=== PATIENT | female | born 1970 | race Caucasian/White ===

== ENCOUNTER 2025-01-23 10:20 | Outpatient (CLI) | payer BC, SELFPAY ==
--- NOTE | ~2025-01-23 | CT_ITS ---
CT Scan of the Chest without Contrast: Clinical Indication: Lung cancer screening, nicotine dependence Technique: Contiguous sections were acquired throughout the chest without intravenous contrast. Dose reduction technique was used on this scan by utilizing automated exposure control and iterative recon struction technique. The dose-length product (DLP) was 223.87 mGy-cm. Findings: There is no evidence of any significant mediastinal, hilar or axillary lymphadenopathy. The mediastin al soft tissues appear normal. There is no evidence of pleural or pericardial effusion. The lungs are clear. No pulmonary nodules or infiltrates are noted. Images through the upper abdomen reveal no abnormalities. Impression: Lung RADS 1: Negative. 12 month follow-up screening CT advised. Reviewed, dictated and finalized at location . Impression: Lung RADS 1: Negative. 12 month follow-up screening CT advised.
== END 2025-01-23 10:21 | disposition home or self-care (01) ==
PROVIDERS: PCP Nurse Practitioner; Visit Provider Physician Assistant
DX: Z12.2 Encounter for screening for malignant neoplasm of respiratory organs (principal); Z87.891 Personal history of nicotine dependence
CPT/HCPCS: 71271

== ENCOUNTER 2025-02-01 13:35 | Outpatient (CLI) | payer BC, SELFPAY ==
--- OUTSIDE RECORDS SUMMARY | 2025-02-01 13:38 | XMS_ITS | Clinical Summary ---
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 Name Role Phone Unavailable Primary Care Provider Unavailabl e Social History Tobacco Use Types Packs/Day Years Used Date Smoking Tobacco: Never Assessed Comments Unknown Sex and Gender Information Value Date Recorded Sex Assigned at Not on file Legal Sex Female 4:49 PM CDT Gender Identity Not on file Sexual Orientation Not on file Plan of Treatment Health Maintenance Due Date Last Done Comments Cervical Cancer Screening Pa p Smear (Age 30 to 64) Every 3 Years 1970 Colorectal Cancer Screening Colonoscopy (10 Years) 1970 Annual Physical 1973 Hepatitis C 1988 DTaP, Tdap and Td Vaccines ( 1 - Tdap) 1989 Hepatitis B Vaccines (1 of 3 - 19+ 3-dose series) 1989 Cervical Cancer Screening Pa p with HPV Testing (Age 30 to 64) Every 5 Years 2000 Cervical Cancer Screening with HPV 2000 Mammogram Screening 2010 Pneumococcal Vaccine: 50+ Ye ars (1 of 1 - PCV) 2020 Zoster Vaccines (1 of 2) 2020 COVID-19 Vaccine (2023-2 5 season) 2024 Meningococcal B Vaccine Aged Out No l onger eligible based on patient's age to complete this topic Meningococcal Vaccine Aged Out No summer cindy eligible based on patient's age to complete this topic RSV Immunizations Under 20 Months Aged Out No longer eligible based on patient's age to complete this topic
--- OUTSIDE RECORDS SUMMARY | 2025-02-01 13:38 | XMS_ITS | Continuity of Care Document ---
Author Organization [facility] Address [address] [place] [address] Phone Care Team Providers Care Catalyst Operator Name Role Phone Nava BRUCE OD, Jewel Unavailable Unavailabl e Allergies, Adverse Reactions, Alerts Substance Reaction Status Criticality No Known Allergies Active No Inform ation Medications Medication Instructions Dosage Effective Dates (start - stop) Status Comments Soothe Hydration 1.25 % eye drops - Active Oracea 40 mg capsule, extended release take 1 capsule by oral route every day in the morning at least 1 hour before or 2 hours after meals 40 MG - Active Multi Vitamin BUCCAL CAPSULE - Active Vitamin D3 2,000 unit tablet - Active Procedures Procedure Date Office/outpatient Visit, [facility] Refraction Optomap Vision cs Frames Purchases Progressive Lens Per Lens Anti-reflective Coating Advance Directives Directive Yes / No Effective Date File Name No Information Encounters Encounter Description Practice Location Reason(s) For Visit Diagnoses Date Provider Providers Copied on Encounter Office/outpat ient Visit, [facility], [address], [place], [place], [id number], [place] tel:[phone] [facility] [place] blurry vision (chief complaint) Headache Nava Holloway. [address], [place], [id number], [place]. tel:[phone] Referring Provider: Jewel Vick OD P, [address] [place], [address] . tel:[phone] [facility], [address], [place], [place], [id number], [place] tel:[phone] [facility] No Information [facility] . [address], [address], [place], [place], [address], [place]. tel:[phone] Referring Provider: Jewel Vick OD P, [address] [place], [address] . tel:[phone] sulting Provider: Mellissa Barrera, [address] [facility], [place], [address]. Family History Family Member Type Diagnosis Age At Onset No Information Payers Payer name Insurance type Covered green party ID Authorgretchen arce(s) [facility] [id number] [employer] Plan [id number] Social History Type Description Quantity Date Captured Comments Alcohol Use Details Unknown Caffeine Use Details Unknown Tobacco Use Status Smoking Status Smoker, current stat us unknown Non-Smoking Tobacco Use Details : No Details Available : No Details Available Sex Female Chief Complaint And Reason For Visit From encounter dated '02/09/2014 10:30'. blurry vision (chief complaint). Description: The 43 year old female presents for evaluation of blurry vision. in the right eye and left eye. It occurs all the time. It affects near vision. The condition is unstable. Pt states that she notices vision decreasing at near vision, but distances seeems normal. Pt also states that she has been getting headaches but she thinks that they may be related to allergies. Reason For Referral Reason For Referral No Information History Of Present Illness Encounter Date Complaint History Of Prese nt Illness blurry vision The 43 year old female presents for evaluation of blurry vision. in the right eye and left eye. It occurs all the time. It affects near vision. The condition is unstable. Pt states that she notices vision decreasing at near vision, but distances seeems normal. Pt also states that she has been getting headaches but she thinks that they may be related to allergies. Functional Status Date Functional Assessmen t No Information Instructions Date Instruction Additional Infor yaa - pleasedto find goo d resultsddisc headaches may be from eye strainrx given for specs-rec PAL specs for best conveniencecont AT PRN OUpt to call if symptoms worsen or do not improve Related to Headache - Return in 1 year madelyn Vick O.D. for Complete Exam Related to Headache Assessments Type Assessment Date assessment Headache Patient Care Teams Name Effective Dates (start - stop) Status Members No Information
--- OUTSIDE RECORDS SUMMARY | 2025-02-01 13:39 | XMS_ITS | Encounter Summary ---
Author Organization [facility] Address [address] [place] [address] Phone Care Team Providers Care Cras Name Role Phone Saurabh Urbina MD Primary Care Provider Vaughn Saldana Primary Care Provider [phone] Leatha Marcos NP Primary Care Provider [phone] Encounter Details Date Type Department Care Team (Late st Contact Info) Description 10/16/2017 Orders Only 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 Historical Provider MD LAB CYTOLOGY ORDERABLES F inal Result documented in this encounter Visit Diagnoses Not on filedocumented in this encounter Care Teams Cras Relationship Specialty Start Date End Date Saurabh Urbina MD [address] [place] [address] PCP - General 10/20/18 01/21/19 Vaughn Saldana PA [address] [place] [address] PCP - General Family Medicine 01/22/19 07/26/24 Leatha Marcos NP [address] [place] [address] PCP - General Family Medicine 07/27/24 documented as of this encounter
--- OUTSIDE RECORDS SUMMARY | 2025-02-01 13:39 | XMS_ITS | Referral Summary ---
Author Organization [facility] at [facility] Medical Office Building Address [facility] [place] [address] Care Team Providers Care Energy Trading Analyst Name Role Phone Leatha Marcos NP Primary Care Provider [phone] Encounters Date Type Department Care Team Description 01/08/2025 Results Follow-Up [facility] Obstetrical Gynecology [address] [place] [phone] Saurabh Urbina MD Screening Mammogram Bilateral W Young 01/07/2025 4:17 PM CDT - 01/07/2025 11:59 PM CDT Hospital Encounter [facility] Medical Office [address] 1 [facility] [address] [address] Encounter for screening mammogram for malignant neoplasm of breast Discharge Disposition: Discharge to home or self care 01/06/2025 Results Follow-Up [facility] Obstetrical Gynecology [address] [place] [address] [place] [phone] Saurabh Urbina MD Pap and High Risk HPV and Genotyping (Cytology Component) 12/28/2024 6:22 PM CDT - 12/28/2024 11:59 PM CDT Hospital Encounter [facility] Lab [facility] [place] [address] Benign-appearing endometrial cells on cervical Pap smear Discharge Disposition: Discharge to home or self care 12/28/2024 4:00 PM CDT Office Visit [facility] Obstetrical Gynecology [address] [facility] [address] [place] [address] Saurabh Urbina MD Benign-appearing endometrial cells on cervical Pap smear (Primary Dx) 12/15/2024 2:[address] [facility] at [address] [address] Elevated hematocrit 12/15/2024 3:00 PM CDT Office Visit [facility] Hematology [address] [place] [address] [address] [place] [address] Nancy Arvizu MD Elevated hematocrit (Primary Dx) 12/09/2024 4:[address] [facility] at [address] [address] Elevated hematocrit 12/08/2024 3:30 PM CDT Clinical Support [facility] Medical [facility] Primary Care [facility]4 [facility] [address] [place] [address] Encounter for immunization (Primary Dx) 11/24/2024 4:[address] [facility] at [address] [address] Elevated hematocrit 11/10/2024 4:[address] [facility] at [address] [address] Elevated hematocrit 11/02/2024 Results Follow-Up [facility] Medical [facility] Obstetrical Gynecology [facility] [address] [place] [address] Saurabh Urbina MD Pap and High Risk HPV and Genotyping (Cytology Component) from Last 3 Months Allergies Active Allergy Reactions Criticality Noted Date Comments Sulfamethoxazole-Trimethoprim Nausea & Vomiting Low 07/15/2023 Medications cholecalciferol (VITAMIN D-3) 2000 unit capsule 2.5 capsules (5,000 Units total) Active fluticasone propionate (FLONASE) 50 mcg/actuation nasal spray 2 (two) times a day 10/31/19 16 Active multivitamin capsule Rx: Multivitamins Capsule Active montelukast (SINGULAIR) 10 mg tablet Take 1 tablet (10 mg total) by mouth nightly Active Soolantra 1 % cream 05/25/20 20 Active albuterol HFA (PROVENTIL HFA,VENTOLIN HFA,PROAIR HFA) 90 mcg/actuation inhaler 2 puff(s) Active cetirizine (ZyrTEC) 10 mg tablet 1 tab(s) Active EPINEPHrine 0.3 mg/0.3 mL auto-injection syringe Active Trelegy Ellipta 200-62.5-25 mcg inhaler 02/08/20 Active betamethasone dipropionate (DIPROSONE) 0.05 % lotion APPLY TOPICALLY TO AFFECTED AREA ON SCALP 1-2 TIMES DAILY 05/21/20 23 Active doxycycline hyclate 50 mg tablet 09/09/19 24 Active Active Problems Problem Noted Date Diagnosed Date Cigarette nicotine dependence without complicati on 08/04/2024 Assessment & Plan (08/04/2024 4:50 PM BLIND AIDE): Patient is current daily cigarette smoker. She is not interested in smoking cessation at this time. Follow up in 6 months. Moderate persistent asthma without complication 07/27/2024 Assessment & Plan (08/04/2024 4:45 PM BLIND AIDE): Chronic, controlled with Trelegy daily and albuterol inhaler PRN. Follow up in 6 months. Seasonal allergies 07/27/2024 Assessment & Plan (08/04/2024 4:46 PM BLIND AIDE): Chronic, controlled with Singular 10 mg nightly, Zyrtec 10 mg daily, and Flonase daily. Follow up in 6 months. Routine general medical exam ination at a health care facility 07/11/2023 Assessment & Plan (08/04/2024 4:48 PM BLIND AIDE): CBC, CMP, lipid panel ordered. Mammogram last completed: 12/2023 Pap last completed: 09/2023, patient following with [facility]. Colonoscopy last completed: 01/2024. Vaccinations: COVID, Shingrix, and Flu vaccines UTD. Repeat wellness exam in one year. Assessment & Plan (07/15/2023 3:51 PM BLIND AIDE): Healthcare maintenance updated, work on diet and weight, labs as ordered. We also discussed smoking sensation Anogenital (venereal) warts 11/30/2016 Resolved Problems Problem Noted Date Diagnosed Date Resolved Date Screen for colon cancer 11/11/202301/2025 Screening for colon cancer 09/26/2023 0 08/04/2024 Acute left ankle pain 01/22/20192024 Assessment & Plan (01/22/2019 4:17 PM CDT): Unclear specific diagnosis. Most likley appear tendon/ligament strain/sprain. Recommend to see Production Dispatcher if symptoms persist consider improvising shoe and standing. Immunizations Immunization Administration Dates Next Due Hib (PRP-OMP) 05/30/2021 Influenza, Quadrivalent, Daphne l Culture-based MDCK, Antibiotic Free, Intramuscular 05/24/2021 Influenza, Quadrivalent, Daphne l Culture-based MDCK, Preservative Free, Antibiotic Free, Intramuscular 05/12/2020 Influenza, Quadrivalent, Spl it, Intramuscular 07/09/2023 Influenza, Trivalent, IM (MDV) 07/10/2018 Influenza, Unspecified 05/29/2024(Deferr ed: Patient Refused),07/09/2023,07/15/2022(Deferre d: Patient decision),06/12/2022(Deferred: Patient Refused) Pneumococcal Polysaccharide PPV23 05/30/2021 ZOSTER Recombinant 12/08/2024,07/27/2024 Social History Tobacco Use Types Packs/Day Years Used Date Smoking Tobacco: Every Day Cigarettes 0.8 15.1 Smokeless Tobacco: Never Tobacco Cessation:Ready to Q uit: Yes; Counseling Given: Not Answered Alcohol Use Standard Drinks/Week Comments Yes 0 (1 standard drink = 0.6 oz pur e alcohol) rarely AUDIT-C Answer Date Recorded Q1: How often do you have a drink containing alcohol? Never 10/27/2024 Q2: How many drinks containi ng alcohol do you have on a typical day when you are drinking? Patient does not drink Q3: How often do you have si x or more drinks on one occasion? Never 10/27/2024 PHQ-2 Answer Date Recorded PHQ-2 Total Score (If total score is 3 or more points, staff should administer the PHQ-9) 0 07/27/2024 Personal Safety Answer Date Recorded Have you ever been in or are you currently in a harmful physical or emotional relationship or is someone making you feel afraid or unsafe? Denies 01/27/2024 Comments No Sex and Gender Information Value Date Recorded Sex Assigned at Not on file Legal Sex Female 4:34 PM CDT Gender Identity Female 05/29/2020 9:52 PM BLIND AIDE Sexual Orientation Straight 08/08/2021 2: 57 PM BLIND AIDE Last Filed Vital Signs Vital Sign Reading Time Taken Comments Blood Pressure 124/66 12/28/2024 3:57 PM CDT Pulse 82 12/15/2024 2:46 PM CDT Temperature 37.1 C (98.7 F) 12/15/2024 2:46 PM CDT Respiratory Rate 18 12/15/2024 2:46 PM CDT Oxygen Saturation 95% 12/15/2024 2:46 PM CDT Inhaled Oxygen Concentration - - Weight 107.1 kg (236 lb 3.2 oz) 12/28/2024 3:57 PM CDT Height 162.6 cm (5' 4) 12/28/2024 3:57 PM CDT Body Mass Index 40.54 12/28/2024 3:57 PM CDT Plan of Treatment Not on file Procedures Procedure Name Priority Date/Time Associated Diagnosis Comments SCREENING MAMMOGRAM BILATERAL W YOUNG Schedule Routine, Read Routine (OP Routine) 01/07/2025 4:29 PM CDT Encounter for screening mammogram for malignant neoplasm of breast PAP AND HIGH RISK HPV, REFLEX TO GENOTYPING Routine 12/28/2024 4:25 PM CDT Benign-appearing endometrial cells on cervical Pap smear HIGH RISK HPV DNA DETECTION WITH GENOTYPING Routine 12/28/2024 4:25 PM CDT Benign-appearing endometrial cells on cervical Pap smear DIFFERENTIAL AUTO Routine 12/15/2024 2:3 1 PM CDT Elevated hematocrit CBC WITH AUTO DIFFERENTIAL Routine 12/15/2024 2:31 PM CDT Elevated hematocrit DIFFERENTIAL AUTO Routine 12/09/2024 4:2 8 PM CDT Elevated hematocrit CBC WITH AUTO DIFFERENTIAL Routine 12/09/2024 4:28 PM CDT Elevated hematocrit DIFFERENTIAL AUTO Routine 11/24/2024 4:3 3 PM CDT Elevated hematocrit CBC WITH AUTO DIFFERENTIAL Routine 11/24/2024 4:33 PM CDT Elevated hematocrit DIFFERENTIAL AUTO Routine 11/10/2024 4:2 9 PM CDT Elevated hematocrit CBC WITH AUTO DIFFERENTIAL Routine 11/10/2024 4:29 PM CDT Elevated hematocrit COLONOSCOPY 01/27/2024 11:11 AM CDT from Last 3 Months or Most Recently Relevant to Health Maintenance Results * Screening Mammogram Bilateral W Young (01/07/2025 4:29 PM CDT) Anatomical Region Laterality Modality Breast Bilateral Mammography Impressions 01/07/2025 4:31 PM CDT Bilateral No evidence of malignancy in either breast. OVERALL BI-RADS FINAL ASSESSMENT: 1 - Negative RECOMMENDATION: Recommend bilateral annual screening mammography. Narrative 01/07/2025 4:31 PM CDT EXAMINATION: Screening Mammogram Bilateral W Young: 01/07/2025 COMPARISON: Relevant prior studies available at the time of interpretation were reviewed. TECHNIQUE: Mammography was performed with 2D and digital breast tomosynthesis (DBT) images. CAD was utilized. BREAST PARENCHYMAL COMPOSITION: There are scattered areas of fibroglandular density. FINDINGS: Bilateral There is no suspicious mass, calcification, or architectural distortion in either breast. Saurabh Urbina MD IMG MAMMO PROCEDURES Fi nal Result * High Risk HPV DNA Detection with Genotyping (Molecular component) (12/28/2024 4:25 PM CDT) Pathologist [facility] HPV HR 16 Not Detected Not Detected [facility] Comment:Testing performed by : [facility], [address] [place]., [address] HPV HR 18 Not Detected Not Detected DEX AZAR Comment:Testing performed by : [facility], [address] [place]., [address] HPV HR Non 16/18 Not Detected Not Detected DEX AZAR Comment: Interpretive Data Nucleic acid amplification for detection of high-risk Human Papilloma virus (HPV) is performed by the Ca Taryn 6800 HPV test. This assay specifically detects HPV-16 and HPV-18 genotypes. The following HPV genotypes are detected as high-risk HPV: HPV-31, 33, 35, ,39, 45, 51, 52, 56, 58, 59, 66, and 68. This assay has been approved by the [place] Food and Drug Administration for detection of HPV in cervical specimens collected by a physician using an endocervical brush/spatula or cervical broom and placed in the ThinPrep Pap Test PreservCyt collection containers. The performance characteristics of this test have been verified by the [facility] Molecular Infectious Disease laboratory. Correlate with separately reported cytology results, as applicable. Interpretive data last revised 23 Testing performed by: [facility], [address] [place]., [address] Endocervical 12/28/2024 4:25 PM CDT 12/30/2024 9:32 AM CDT Narrative DEX AZAR - 12/30/2024 8:24 PM CDT Clinical history and diagnosis->repeat Number of vials->1 Testing type->Screening Last menstrual period (date if known)->jl Menstrual status->Perimenopausal us Saurabh Urbina MD LAB BODY FLUIDS AND STO OLS ORDERABLES Final Result DEX AZAR [address] [facility] [place] [address] [facility] * Pap and High Risk HPV and Genotyping (Cytology Component) (12/28/2024 4:25 PM CDT) Thin prep (Pap test) 12/28/2024 4:25 PM CDT 12/29/2024 6:38 AM CDT Narrative PATHOLOGY [facility] - 01/06/2025 10:21 AM CDT EPIC results best viewed via link to PDF [facility] [place] [address] Note to Patients: This report may contain a detailed description of human tissue sent by a health care provider to the laboratory for pathologic evaluation. The content of this report is essential for diagnosis and may provide important critical findings. This information may be unfamiliar to patients to review without a medical professional present. It is advised that the patient review this report in the presence of a health care provider who can answer questions and explain the details. CYTOPATHOLOGY REPORT FINAL Patient Name: SANGEETA LAI Gender: F : 1970 (Age: 54) Address: [address] [place], [place] [id number] [facility] #: [id number] Service: UNKNOWN Location: Patient Type: [facility] SPECIMEN Taken: 12/28/2024 Received: 12/29/2024 Accessioned: 12/29/2024 Reported: 01/06/2025 Physician(s): Saurabh Urbina M.D. FINAL INTERPRETATION SOURCE OF SPECIMEN Liquid based Thin Prep pap with HPV: STATEMENT OF ADEQUACY - Satisfactory for evaluation - Endocervical cells/transformation zone sample present GENERAL CATEGORIZATION: - Negative for squamous intraepithelial lesion or malignancy Comments (Normal-Negative for High Risk HPV) HPV HR 16- Not Detected HPV HR 18-Not Detected HPV HR non 16/18- Not Detected Interpretive Data Nucleic acid amplification for detection of high-risk Human Papilloma virus (HPV) is performed by the Ca Taryn 6800 HPV test. This assay specifically detects HPV- 16 and HPV-18 genotypes. The following HPV genotypes are detected as high-risk HPV: HPV-31, 33, 35, 39, 45, 51, 52, 56, 58, 59, 66, and 68. This assay has been approved by the [place] Food and Drug Administration for detection of HPV in cervical specimens collected by a physician using an endocervical brush/spatula or cervical broom and placed in the ThinPrep Pap Test PreservCyt collection containers. The performance characteristics of this test have been verified by the [facility] Molecular Infectious Disease laboratory. Correlate with reported cytology results, as applicable. Interpretive data last revised 23 This specimen has been rescreened in accordance with this laboratory's Game Manager Program. /01/06/2025 10:21 Zeus Vidal, SCT(ASCP), [facility] Report Electronically Reviewed and Signed Out By Livier Hathaway MS, CT (ASCP) 01/06/2025 10:21:49 Cervicovaginal Cytology (Pap Test) Disclaimer: The Pap test is a screening test used to detect cervical cancer and its precursors; it is not a diagnostic procedure. False negative and false positive results do occur. Pap test results should be interpreted in the context of pertinent clinical information and biopsy results as indicated. [facility] Clinical Laboratory Improvement Amendments (CLIA) mandate that cytologic and histologic results be correlated for laboratory software quality analyst & improvement standards. FOR ALL HIGH-GRADE CASES we request submission of follow-up histological material and/or reports that have not been previously provided so that we may fulfill said required standards. Gross Description A. Liquid based Thin Prep pap with HPV: Cervical/vaginal - Screening ThinPrep Clinical Diagnosis and History Last Menstrual Period: Not Provided. Menstrual History: Jl-menopausal The patient is a 54 year old female with repeat. Report Images and scanned documents, if included only viewable in PDF version The performance characteristics of some immunohistochemical stains, in-situ hybridization and fluorescence in-situ hybridization tests and immunophenotyping by flow cytometry cited in this report (if any) were determined by the Surgical Pathology Department at [facility] as part of an ongoing quality rn program and in compliance with federally mandated regulations drawn from the Clinical Laboratory Improvement Act of 1988 (CLIA '88). Some of these tests rely on the use of analyte specific reagents and are subject to specific labeling requirements by the [place] Food and Drug Administration. Such diagnostic tests may only be performed in a facility that is certified by the Department of Health and Human Services as a high complexity laboratory under CLIA '88. The FDA has determined that such clearance or approval is not necessary. This test is used for clinical purposes. It should not be regarded as investigational or for research. Nevertheless, federal rules concerning the medical use of analyte specific reagents require that the following disclaimer be attached to the report: This test was developed and its performance characteristics determined by the Surgical Pathology Department of [facility]. It has not been cleared or approved by the U. S. Food and Drug Administration. Saurabh Urbina MD LAB CYTOLOGY ORDERABLES Final Result PATHOLOGY [facility] * Differential, auto (12/15/2024 2:31 PM CDT) Neutrophil abs 2.89 1.50 - 6.50 K/cumm Comment:Testing performed by : [address] [address] Imm gran abs 0.02 0.00 - 0.10 K/cumm DEX Comment:Testing performed by : [address] [address] Lymphocyte abs 2.75 0.80 - 3.30 K/cumm DEX Comment:Testing performed by : [address] [address] Monocyte abs 0.45 0.20 - 0.80 K/cumm [facility] Comment:Testing performed by : [address] [address] Eosinophil abs 0.20 0.00 - 0.50 K/cumm [facility] Comment:Testing performed by : [address] [address] Basophil abs 0.07 0.00 - 0.10 K/cumm [facility] Comment:Testing performed by : [address] [address] Neutrophil pct 45.3 % [facility] Comment: Interpretive Data Percent cell count reference ranges are not reported, since discordance with absolute values may lead to misinterpretation of CBC data. Current Interpretive Data was last revised on 2017. Testing performed by: [address] [address] Imm gran pct 0.3 % [facility] Comment: Interpretive Data Percent cell count reference ranges are not reported, since discordance with absolute values may lead to misinterpretation of CBC data. Current Interpretive Data was last revised on 2017. Testing performed by: [address] [address] Lymphocyte pct 43.1 % [facility] Comment: Interpretive Data Percent cell count reference ranges are not reported, since discordance with absolute values may lead to misinterpretation of CBC data. Current Interpretive Data was last revised on 2017. Testing performed by: [address] [address] Monocyte pct 7.1 % [facility] Comment: Interpretive Data Percent cell count reference ranges are not reported, since discordance with absolute values may lead to misinterpretation of CBC data. Current Interpretive Data was last revised on 2017. Testing performed by: [address] [address] Eosinophil pct 3.1 % [facility] Comment: Interpretive Data Percent cell count reference ranges are not reported, since discordance with absolute values may lead to misinterpretation of CBC data. Current Interpretive Data was last revised on 2017. Testing performed by: [address] [address] Basophil pct 1.1 % [facility] Comment: Interpretive Data Percent cell count reference ranges are not reported, since discordance with absolute values may lead to misinterpretation of CBC data. Current Interpretive Data was last revised on 2017. Testing performed by: [address] [address] Blood 12/15/2024 2:31 PM CDT 12/15/2024 2:36 PM CDT us Nancy Arvizu MD LAB BLOOD ORDERABLES Geeta walsh Result DEX AZAR [address] [facility] [place] [address] * (ABNORMAL) CBC with auto differential (12/15/2024 2:31 PM CDT) WBC 6.38 3.80 - 9.90 K/cumm Comment:Testing performed by : [address], [address] Hgb 14.3 11.9 - 15.5 g/dL DEX Comment:Testing performed by : [address], [address] Hct 43.5 35.6 - 45.5 % DEX Comment:Testing performed by : [address] [address] Plt 435(H) 150 - 400 K/cumm DEX Comment:Testing performed by : [address] [address] MPV 9.7 9.1 - 12.3 fL DEX Comment:Testing performed by : [address], [address] RBC 5.40(H) 3.90 - 5.20 M/cumm DEX Comment:Testing performed by : [address], [address] MCV 80.6(L) 81.3 - 96.4 fL DEX Comment:Testing performed by : [address], [address] MCH 26.5(L) 27.1 - 33.3 pg DEX Comment:Testing performed by : [address], [address] MCHC 32.9 32.3 - 35.7 g/dL DEX Comment:Testing performed by : [address], [address] RDW CV 13.3 11.1 - 14.9 % DEX Comment:Testing performed by : [address], [address] RDW SD 38.5 35.7 - 48.1 fL DEX Comment:Testing performed by : [address], [address] NRBC abs 0.00 0.00 - 0.01 K/cumm DEX Comment:Testing performed by : [address], [address] ANC Prelim 2.89 1.50 - 6.50 K/cumm DEX Comment: Interpretive Data The rapid ANC is a preliminary automated count and may vary from the final ANC (Neut Abs) reported in the WBC differential that follows. Current interpretive data was last revised 2024. Testing performed by: [address] [address] Blood 12/15/2024 2:31 PM CDT 12/15/2024 2:36 PM CDT us Nancy Arvizu MD LAB BLOOD ORDERABLES Geeta walsh Result DEX [address] [facility] [place] [address] * (ABNORMAL) Differential, auto (12/09/2024 4:28 PM CDT) Neutrophil abs 6.51(H) 1.50 - 6.50 K/cumm Comment:Testing performed by : [address] [address] Imm gran abs 0.04 0.00 - 0.10 K/cumm DEX Comment:Testing performed by : [address] [address] Lymphocyte abs 1.93 0.80 - 3.30 K/cumm DEX Comment:Testing performed by : [address] [address] Monocyte abs 0.67 0.20 - 0.80 K/cumm DEX Comment:Testing performed by : [address] [address] Eosinophil abs 0.24 0.00 - 0.50 K/cumm DEX Comment:Testing performed by : [address] [address] Basophil abs 0.05 0.00 - 0.10 K/cumm DEX Comment:Testing performed by : [address] [address] Neutrophil pct 69.1 % DEX Comment: Interpretive Data Percent cell count reference ranges are not reported, since discordance with absolute values may lead to misinterpretation of CBC data. Current Interpretive Data was last revised on 2017. Testing performed by: [address] [address] Imm gran pct 0.4 % [facility] Comment: Interpretive Data Percent cell count reference ranges are not reported, since discordance with absolute values may lead to misinterpretation of CBC data. Current Interpretive Data was last revised on 2017. Testing performed by: [address] [address] Lymphocyte pct 20.4 % [facility] Comment: Interpretive Data Percent cell count reference ranges are not reported, since discordance with absolute values may lead to misinterpretation of CBC data. Current Interpretive Data was last revised on 2017. Testing performed by: [address] [address] Monocyte pct 7.1 % [facility] Comment: Interpretive Data Percent cell count reference ranges are not reported, since discordance with absolute values may lead to misinterpretation of CBC data. Current Interpretive Data was last revised on 2017. Testing performed by: [address] [address] Eosinophil pct 2.5 % [facility] Comment: Interpretive Data Percent cell count reference ranges are not reported, since discordance with absolute values may lead to misinterpretation of CBC data. Current Interpretive Data was last revised on 2017. Testing performed by: [address] [address] Basophil pct 0.5 % [facility] Comment: Interpretive Data Percent cell count reference ranges are not reported, since discordance with absolute values may lead to misinterpretation of CBC data. Current Interpretive Data was last revised on 2017. Testing performed by: [address] [address] Blood 12/09/2024 4:28 PM CDT 12/09/2024 4:29 PM CDT Nancy Arvizu MD LAB BLOOD ORDERABLES Geeta l Result [facility] [address] [facility] [place] [address] * (ABNORMAL) CBC with auto differential (12/09/2024 4:28 PM CDT) [place] [facility] WBC 9.44 3.80 - 9.90 K/cumm Comment:Testing performed by : [address] [address] Hgb 13.9 11.9 - 15.5 g/dL DEX Comment:Testing performed by : [address] [address] Hct 42.3 35.6 - 45.5 % DEX Comment:Testing performed by : [address] [address] Plt 340 150 - 400 K/cumm DEX Comment:Testing performed by : [address] [address] MPV 9.8 9.1 - 12.3 fL DEX Comment:Testing performed by : [address] [address] RBC 5.20 3.90 - 5.20 M/cumm DEX Comment:Testing performed by : [address] [address] MCV 81.3 81.3 - 96.4 fL DEX Comment:Testing performed by : [address] [address] MCH 26.7(L) 27.1 - 33.3 pg DEX Comment:Testing performed by : [address] [address] MCHC 32.9 32.3 - 35.7 g/dL DEX Comment:Testing performed by : [address] [address] RDW CV 13.3 11.1 - 14.9 % DEX Comment:Testing performed by : [address] [address] RDW SD 39.2 35.7 - 48.1 fL DEX Comment:Testing performed by : [address] [address] NRBC abs 0.00 0.00 - 0.01 K/cumm DEX Comment:Testing performed by : [address] [address] ANC Prelim 6.51(H) 1.50 - 6.50 K/cumm DEX Comment: Interpretive Data The rapid ANC is a preliminary automated count and may vary from the final ANC (Neut Abs) reported in the WBC differential that follows. Current interpretive data was last revised 2024. Testing performed by: [address] [address] Blood 12/09/2024 4:28 PM CDT 12/09/2024 4:29 PM CDT us Nancy Arvizu MD LAB BLOOD ORDERABLES Geeta l Result [facility] [address] [facility] [place] [address] * (ABNORMAL) Differential, auto (11/24/2024 4:33 PM CDT) Pathologist [facility] Neutrophil abs 4.65 1.50 - 6.50 K/cumm Comment:Testing performed by : [address] [address] Imm gran abs 0.04 0.00 - 0.10 K/cumm DEX Comment:Testing performed by : [address] [address] Lymphocyte abs 3.14 0.80 - 3.30 K/cumm DEX Comment:Testing performed by : [address] [address] Monocyte abs 0.83(H) 0.20 - 0.80 K/cumm DEX Comment:Testing performed by : [address] [address] Eosinophil abs 0.31 0.00 - 0.50 K/cumm DEX Comment:Testing performed by : [address] [address] Basophil abs 0.09 0.00 - 0.10 K/cumm DEX Comment:Testing performed by : [address] [address] Neutrophil pct 51.3 % [facility] Comment: Interpretive Data Percent cell count reference ranges are not reported, since discordance with absolute values may lead to misinterpretation of CBC data. Current Interpretive Data was last revised on 2017. Testing performed by: [address] [address] Imm gran pct 0.4 % DEX Comment: Interpretive Data Percent cell count reference ranges are not reported, since discordance with absolute values may lead to misinterpretation of CBC data. Current Interpretive Data was last revised on 2017. Testing performed by: [address] [address] Lymphocyte pct 34.7 % [facility] Comment: Interpretive Data Percent cell count reference ranges are not reported, since discordance with absolute values may lead to misinterpretation of CBC data. Current Interpretive Data was last revised on 2017. Testing performed by: [address] [address] Monocyte pct 9.2 % [facility] Comment: Interpretive Data Percent cell count reference ranges are not reported, since discordance with absolute values may lead to misinterpretation of CBC data. Current Interpretive Data was last revised on 2017. Testing performed by: [address] [address] Eosinophil pct 3.4 % [facility] Comment: Interpretive Data Percent cell count reference ranges are not reported, since discordance with absolute values may lead to misinterpretation of CBC data. Current Interpretive Data was last revised on 2017. Testing performed by: [address] [address] Basophil pct 1.0 % [facility] Comment: Interpretive Data Percent cell count reference ranges are not reported, since discordance with absolute values may lead to misinterpretation of CBC data. Current Interpretive Data was last revised on 2017. Testing performed by: [address] [address] Blood 11/24/2024 4:33 PM CDT 11/24/2024 4:36 PM CDT us Nancy Arvizu MD LAB BLOOD ORDERABLES Geeta l Result [facility] [address] [facility] [place] [address] * (ABNORMAL) CBC with auto differential (11/24/2024 4:33 PM CDT) WBC 9.06 3.80 - 9.90 K/cumm Comment:Testing performed by : [address] [address] Hgb 14.2 11.9 - 15.5 g/dL DEX Comment:Testing performed by : [address] [address] Hct 43.3 35.6 - 45.5 % DEX Comment:Testing performed by : [address] [address] Plt 424(H) 150 - 400 K/cumm DEX Comment:Testing performed by : [address] [address] MPV 9.9 9.1 - 12.3 fL DEX Comment:Testing performed by : [address] [address] RBC 5.37(H) 3.90 - 5.20 M/cumm DEX Comment:Testing performed by : [address] [address] MCV 80.6(L) 81.3 - 96.4 fL DEX Comment:Testing performed by : [address] [address] MCH 26.4(L) 27.1 - 33.3 pg DEX Comment:Testing performed by : [address] [address] MCHC 32.8 32.3 - 35.7 g/dL DEX Comment:Testing performed by : [address] [address] RDW CV 13.2 11.1 - 14.9 % DEX Comment:Testing performed by : [address] [address] RDW SD 38.5 35.7 - 48.1 fL DEX Comment:Testing performed by : [address] [address] NRBC abs 0.00 0.00 - 0.01 K/cumm DEX Comment:Testing performed by : [address] [address] ANC Prelim 4.65 1.50 - 6.50 K/cumm DEX Comment: Interpretive Data The rapid ANC is a preliminary automated count and may vary from the final ANC (Neut Abs) reported in the WBC differential that follows. Current interpretive data was last revised 2024. Testing performed by: [address] [address] Blood 11/24/2024 4:33 PM CDT 11/24/2024 4:36 PM CDT us Nancy Arvizu MD LAB BLOOD ORDERABLES Geeta l Result [facility] [address] [facility] of [facility] [place], [place] [id number] * (ABNORMAL) Differential, auto (11/10/2024 4:29 PM CDT) Neutrophil abs 4.05 1.50 - 6.50 K/cumm Comment:Testing performed by : [address] [address] Imm gran abs 0.04 0.00 - 0.10 K/cumm DEX Comment:Testing performed by : [address] [address] Lymphocyte abs 3.32(H) 0.80 - 3.30 K/cumm DEX Comment:Testing performed by : [address] [address] Monocyte abs 0.82(H) 0.20 - 0.80 K/cumm [facility] Comment:Testing performed by : [address] [address] Eosinophil abs 0.24 0.00 - 0.50 K/cumm [facility] Comment:Testing performed by : [address], [place]., [address] Basophil abs 0.07 0.00 - 0.10 K/cumm [facility] Comment:Testing performed by : [address] [address] Neutrophil pct 47.4 % [facility] Comment: Interpretive Data Percent cell count reference ranges are not reported, since discordance with absolute values may lead to misinterpretation of CBC data. Current Interpretive Data was last revised on 2017. Testing performed by: [address] [address] Imm gran pct 0.5 % [facility] Comment: Interpretive Data Percent cell count reference ranges are not reported, since discordance with absolute values may lead to misinterpretation of CBC data. Current Interpretive Data was last revised on 2017. Testing performed by: [address] [address] Lymphocyte pct 38.9 % [facility] Comment: Interpretive Data Percent cell count reference ranges are not reported, since discordance with absolute values may lead to misinterpretation of CBC data. Current Interpretive Data was last revised on 2017. Testing performed by: [address] [address] Monocyte pct 9.6 % [facility] Comment: Interpretive Data Percent cell count reference ranges are not reported, since discordance with absolute values may lead to misinterpretation of CBC data. Current Interpretive Data was last revised on 2017. Testing performed by: [address] [address] Eosinophil pct 2.8 % [facility] Comment: Interpretive Data Percent cell count reference ranges are not reported, since discordance with absolute values may lead to misinterpretation of CBC data. Current Interpretive Data was last revised on 2017. Testing performed by: [address] [address] Basophil pct 0.8 % [facility] Comment: Interpretive Data Percent cell count reference ranges are not reported, since discordance with absolute values may lead to misinterpretation of CBC data. Current Interpretive Data was last revised on 2017. Testing performed by: [address] [address] Blood 11/10/2024 4:29 PM CDT 11/10/2024 4:29 PM CDT us Nancy Arvizu MD LAB BLOOD ORDERABLES Geeta walsh Result DEX [facility] [place] [address] * (ABNORMAL) CBC with auto differential (11/10/2024 4:29 PM CDT) WBC 8.54 3.80 - 9.90 K/cumm Comment:Testing performed by : [address] [address] Hgb 14.1 11.9 - 15.5 g/dL DEX [facility] Comment:Testing performed by : [address] [address] Hct 42.6 35.6 - 45.5 % DEX Comment:Testing performed by : [address] [address] Plt 358 150 - 400 K/cumm DEX Comment:Testing performed by : [address] [address] MPV 10.2 9.1 - 12.3 fL DEX [facility] Comment:Testing performed by : [address] [address] RBC 5.26(H) 3.90 - 5.20 M/cumm DEX [facility] Comment:Testing performed by : [address] [address] MCV 81.0(L) 81.3 - 96.4 fL DEX [facility] Comment:Testing performed by : [address] [address] MCH 26.8(L) 27.1 - 33.3 pg DEX [facility] Comment:Testing performed by : [address] [address] MCHC 33.1 32.3 - 35.7 g/dL DEX [facility] Comment:Testing performed by : [address] [address] RDW CV 13.2 11.1 - 14.9 % DEX Comment:Testing performed by : [address] [address] RDW SD 38.6 35.7 - 48.1 fL DEX Comment:Testing performed by : [address] [address] NRBC abs 0.00 0.00 - 0.01 K/cumm DEX Comment:Testing performed by : [address] [address] ANC Prelim 4.05 1.50 - 6.50 K/cumm DEX Comment: Interpretive Data The rapid ANC is a preliminary automated count and may vary from the final ANC (Neut Abs) reported in the WBC differential that follows. Current interpretive data was last revised 2024. Testing performed by: [address] [address] Blood 11/10/2024 4:29 PM CDT 11/10/2024 4:29 PM CDT us Nancy Arvizu MD LAB BLOOD ORDERABLES Geeta l Result DEX [address] [facility] [place] [address] * Colonoscopy (01/27/2024 11:11 AM CDT) Anatomical Region Laterality Modality Other Narrative Procedure Note Randall Masters MD - 01/27/2024 11:11 AM CDT [facility] GI ENDOSCOPY Patient Name: Sangeeta Lai Procedure Date: 01/27/2024 11:11 AM Date of : 1970 Admit Type: Outpatient Age: 53 Gender: Female Attending MD: Randall Masters M.D. Room: [facility] ENDOSCOPY ROOM 05 Note Status: Finalized Procedure: Colonoscopy Indications: Screening for colorectal malignant neoplasm Referring MD: Vaughn Saldana PA-C Providers: Randall Masters M.D. Medicines: Monitored Anesthesia Care Complications: No immediate complications. Estimated Blood Loss: Estimated blood loss was minimal. Procedure: The benefits, risks and alternatives of theprocedure and sedation were discussed and informed consentwas obtained. All questions were answered. Please referto the signed informed consent document in the medical record. The scope was passed under direct vision.The CF-IX750I colonoscope was introduced through theanus and advanced to the cecum, identified byappendiceal orifice and ileocecal valve. The colonoscopy was performed with moderate difficulty due tosignificant looping. Successful completion of the procedure was aided by applying abdominal pressure. The patient tolerated the procedure well. The quality of thebowel preparation was evaluated using the BBPS (BostonBowel Preparation Scale) with scores of: Right Colon = 3, Transverse Colon = 3 and Left Colon = 3 (entiremucosa seen well with no residual staining, smallfragments of stool or opaque liquid). The total BBPS score equals 9. The ileocecal valve, appendiceal orifice, and rectum were photographed. Findings: The entire examined colon appeared normal on direct and retroflexion views. Impression: - The entire examined colon is normal on direct and retroflexion views. - No specimens collected. Recommendation: - Discharge patient to home. - Resume previous diet. - Continue present medications. - Repeat colonoscopy in 10 years for screening purposes. - Patient has a contact number available for emergencies. The signs and symptoms of potential delayed complications were discussed with thepatient. Return to normal activities tomorrow. Written discharge instructions were provided to thepatient. Randall Masters M.D. Randall Masters M.D. 01/27/2024 11:50:14 AM . Number of Addenda: 0 Note Initiated On: 01/27/2024 11:11 AM Recognized by the [employer] for promoting quality in endoscopy Randall Masters MD ENDOSCOPY PROCEDURES Fin al Result from Last 3 Months or Most Recently Relevant to Health Maintenance Insurance [facility] Care Teams Energy Trading Analyst Relationship Specialty Start Date End Date Leatha Marcos NP [address] [place] [phone] PCP - General Family Medicine 07/27/24
--- OUTSIDE RECORDS SUMMARY | 2025-02-01 13:39 | XMS_ITS | Clinical Summary ---
Author Organization [facility] Address [address] [place] [address] Care Team Providers Care Slate Roofer Helper Name Role Phone Unavailable Primary Care Provider Unavailabl e Source Comments [facility],non-owned Affiliates and Associated Physician Practices is amultiple site organization consisting of ambulatory clinics and hospital sitesin [place], [place], [place] and [place]. This disclosure is being madepursuant to the Care Everywhere program and may not contain all information available regarding this patient. Last updated 18.[facility] Social History Tobacco Use Types Packs/Day Years Used Date Smoking Tobacco: Never Assessed Comments Unknown Sex and Gender Information Value Date Recorded Sex Assigned at Not on file Legal Sex Female 3:19 PM CDT Gender Identity Not on file Sexual Orientation Not on file Plan of Treatment Health Maintenance Due Date Last Done Comments COLOGUARD (AGES 45-75) - COL ON CA SCREENING 1970 COLON MONITORING 1970 COLONOSCOPY - COLON CA SCREENING 1970 CT COLONOGRAPHY - COLON CA SCREENING 1970 Colorectal Cancer Screening 1970 FIT - COLON CA SCREENING 1970 FLEX SIG - COLON CA SCREENING 1970 LIPID TESTING 1970 MAMMOGRAM 1970 HIV SCREENING 1985 HEPATITIS C SCREENING 05/17/1988 DTAP/TDAP/TD VACCINES (1 - Tdap) 1989 HEPATITIS B VACCINE (1 of 3 - 19+ 3-dose series) 1989 PNEUMOCOCCAL VACCINE 50+ (1 of 1 - PCV) 2020 ZOSTER VACCINE (1 of 2) 2020 COVID-19 VACCINE (1 - 2023-2 5 season) 2024 DEPRESSION SCREENING 07/29/2024 INFLUENZA VACCINE (#1) 2025 HIB VACCINE Aged Out No longer eligi ble based on patient's age to complete this topic HPV VACCINE Aged Out No longer eligi ble based on patient's age to complete this topic MENINGOCOCCAL (Group B) VACC INE SHARED DECISION-MAKING Aged Out No longer eligibl e based on patient's age to complete this topic MENINGOCOCCAL GROUPS A/C/Y/W VACCINE Aged Out No longer eligible b ased on patient's age to complete this topic Insurance [employer]
--- OUTSIDE RECORDS SUMMARY | 2025-02-01 13:39 | XMS_ITS ---
Author Organization [facility] [employer] [facility] ([address]) Address [address] [place] [address] Care Team Providers Care Financial Planning Advisor Name Role Phone Vaughn Messina Primary Care Provider Flakita Brady Unavailable [phone] Popeye Reis Unavailable [phone] REASON FOR VISIT Asthma follow-up Social History Sex Assigned At : Social History Observation Description Sex Assigned At Female Encounters Encounter Location Date Provider Diagnosis [address] [address] 12/08/2024 Popeye Reis Plan Of Treatment Next Appt Details Provider Name:Elliot Swanson , 02/23/2025 04:30:00 PM, [address] [place] [address], [phone], Provider Name:Bhargavi berry, 06/03/2025 03:15:00 PM, [address] [place] [address], [phone], Progress Notes * Sangeeta LAI NDOB:1970 (54 yo F)Acc No.[id number]:12/08/2024 Asthma F/U Patient: Gokul SMITHbob Diaz Provider: Calvin Reis PA-C :1970 A ge:54 Y S ex:Female Date:12/08/2024 [id number] Pcp:ADE Meier Subjective: * Chief Complaints: * 1 . Asthma follow-up. * Medical History: Objective: * Vitals: Assessment: Plan: * Treatment: * Billing Information: * Visit Code: * Procedure Codes: * Electronic signature of Mannie Reis PA-C on 02/01/2025 at 01:39 PM CDT Sign off status: Pending * Provider: Calvin Reis PA-C Date: 12/08/2024 Generated for Eric bush/Navi/Lillian on: 02/01/2025 01:39 PM CDT
--- OUTSIDE RECORDS SUMMARY | 2025-02-01 13:39 | XMS_ITS | Encounter Summary ---
Author Organization [facility] Address [address] [place] [address] Care Team Providers Care Operation Shift Supervisor Name Role Phone Leatha Marcos NP Primary Care Provider [phone] Encounter Details Date Type Department Care Team (Late st Contact Info) Description 01/06/2025 Results Follow-Up [facility] Obstetrical Gynecology [address] [place] [address] Saurabh Urbina MD [address] [place] [address] Pap and High Risk HPV and Genotyping (Cytology Component) Social History Tobacco Use Types Packs/Day Years Used Date Smoking Tobacco: Every Day Cigarettes 0.8 15.1 Smokeless Tobacco: Never Alcohol Use Standard Drinks/Week Comments Yes 0 [...] CDT Gender Identity Female 05/29/2020 9:52 PM SAP BASIS ADMINISTRATOR Sexual Orientation Straight 08/08/2021 2: 57 PM SAP BASIS ADMINISTRATOR documented as of this encounter Miscellaneous Notes * Result Encounter Note - Saurabh Urbina MD - 01/06/2025 4:33 PM CDT Good news. Your Pap smear is normal. documented in this encounter Plan of Treatment Not on file documented as of this encounter Visit Diagnoses Not on filedocumented in this encounter Care Teams Operation Shift Supervisor Relationship Specialty Start Date End Date Leatha Marcos NP [address] [place] [phone] PCP - General Family Medicine 07/27/24 documented as of this encounter
--- OUTSIDE RECORDS SUMMARY | 2025-02-01 13:39 | XMS_ITS | Patient Health Record ---
Author Organization [facility] ([address]) Address [address] [place] [address] Care Team Providers Care Research Management Associate Name Role Phone Vaughn Messina Primary Care Provider UnavailFlakita Goldstein Unavailable [phone] Elliot Swanson Unavailable [phone] Popeye Reis Unavailable [phone] Bhargavi Diehl Unavailable [phone] Allergies Allergen (clinical drug ingredient) Drug/Non Drug Allergy documented on EMR Reaction Allergy Type Onset Date Status sulfamethoxazole / trimethoprim Bactrim Nausea, dizziness Drug Allergy Active Results Component Value Reference Range Notes Spirometry Reviewed date:03/10/2024 05:17:24 PM Interpretation:Abnormal - FVL Performing Lab: Notes/Report: Abnormal - FVL SpiroPreBronchodilator_FVC 2.83 SpiroPostBronchodilator_FEF2 5 _75 0 SpiroPreBronchodilator_FEF25 _ 75 0.93 SpiroPreBronchodilator_FEV1 1.9 SpiroPrecentPredictionPost_F E F25_75 0 SpiroPrecentPredictionPost_F E V1 0 SpiroPrecentPredictionPost_F E V1_OVER_FVC 0 SpiroPrecentPredictionPost_F V C 0 SpiroPrecentPredictionPre_FE F 25_75 33.8 SpiroPrecentPredictionPre_FE V 1 72.2 SpiroPrecentPredictionPre_FE V 1_OVER_FVC 83.3 SpiroPrecentPredictionPre_FVC 87.1 SpiroPredicted_FEF25_75 2.75 SpiroPreBronchodilator_FEV1_ O VER_FVC 66.98 SpiroPreBronchodilator_PEF 6.8 SpiroPostBronchodilator_FVC 0 SpiroPostBronchodilator_FEV1 0 SpiroPostBronchodilator_FEV1 _ OVER_FVC 0 SpiroPostBronchodilator_PEF 0 SpiroPredicted_FVC 3.25 SpiroPredicted_FEV1 2.63 SpiroPredicted_FEV1_OVER_FVC 80.39 SpiroPredicted_PEF 5.91 VITAMIN D, 25-OH, TOTAL, IA Reviewed date:05/06/2024 08:12:59 AM Interpretation:Normal Performing Lab:[place], [facility].-[facility] [address] [place], [place] [address]eg[facility], [address], [place], [address] Mahendra Rodriguez PhD,[facility] Notes/Report: NON-FASTING FASTING:UNKNOWN FASTING: UNKNOWN VITAMIN D, 25-OH, TOTAL 57.5 >29.9 ng/mL This test was developed and its analytical performance characteristics have been determined by [facility]. It has not been cleared or approved by the U.S. Food and Drug Administration. This assay has been validated pursuant to the CLIA regulations and is used for clinical purposes. Vitamin D, 25-Hydroxy reports concentrations of two common forms, 25-OHD2 and 25-OHD3. 25-OHD3 indicates both endogenous production and supplementation. 25-OHD2 is an indicator of exogenous sources, such as diet or supplementation. Therapy is based on measurement of Total 25-OHD, with levels <20 ng/mL indicative of Vitamin D deficiency, while levels between 20 ng/mL and 30 ng/mL suggest insufficiency. Optimal levels are >=30 ng/mL. Vitamin D, 25-Hydroxy reports concentrations of two common forms, 25-OHD2 and 25-OHD3. 25-OHD3 indicates both endogenous production and supplementation. 25-OHD2 is an indicator of exogenous sources, such as diet or supplementation. Therapy is based on measurement of Total 25-OHD, with levels <20 ng/mL indicative of Vitamin D deficiency, while levels between 20 ng/mL and 30 ng/mL suggest insufficiency. Optimal levels are > or = 30 ng/mL. VITAMIN D, 25-OH, D3 56.1 This test was developed and its analytical performance characteristics have been determined by [facility]. It has not been cleared or approved by the FDA. This assay has been validated pursuant to the CLIA regulations and is used for clinical purposes. VITAMIN D, 25-OH, D2 1.4 This test was developed and its analytical performance characteristics have been determined by [facility]. It has not been cleared or approved by the FDA. This assay has been validated pursuant to the CLIA regulations and is used for clinical purposes. CBC (INCLUDES DIFF/PLT) Reviewed date:04/29/2024 05:16:21 PM Interpretation:Abnormal Performing Lab:[facility], [address] [place], [address] Oli Carbajal MD Notes/Report: NON-FASTING; NON-FASTING FASTING:UNKNOWN FASTING: UNKNOWN WHITE BLOOD CELL COUNT 5.8 3.8-10.8 Thousand/ uL RED BLOOD CELL COUNT 5.48 3.80-5.10 Million/uL HEMOGLOBIN 15.2 11.7-15.5 g/dL HEMATOCRIT 47.7 35.0-45.0 % MCV 87.0 80.0-100.0 fL MCH 27.7 27.0-33.0 pg MCHC 31.9 32.0-36.0 g/dL RDW 12.6 11.0-15.0 % PLATELET COUNT 411 140-400 Thousand/uL MPV 10.9 7.5-12.5 fL ABSOLUTE NEUTROPHILS 2778 1228-8509 cells/uL ABSOLUTE LYMPHOCYTES 2303 850-3900 cells/uL ABSOLUTE MONOCYTES 429 200-950 cells/uL ABSOLUTE EOSINOPHILS 220 15-500 cells/uL ABSOLUTE BASOPHILS 70 0-200 cells/uL NEUTROPHILS 47.9 LYMPHOCYTES 39.7 MONOCYTES 7.4 EOSINOPHILS 3.8 BASOPHILS 1.2 IMMUNOGLOBULIN E Reviewed date:04/29/2024 07:56:33 AM Interpretation:Normal Performing Lab:[facility], [address] [place], [address] Oli Carbajal MD Notes/Report: NON-FASTING; NON-FASTING FASTING:UNKNOWN FASTING: UNKNOWN IMMUNOGLOBULIN E 56 <CK=552 kU/L Reason For Referral No Information Medications Medication SIG (Take, Route, Frequency, Duration) Notes Start Date End Date Status FLONASE 50 mcg/inh 2 spray(s) in each nostril bid Active CETIRIZINE 10 mg 1 tab(s) orally BID, PRN Active Cetirizine HCl 10 MG 1 tab(s) orally BID , PRN Active Oracea 40 MG 1 cap(s) orally once a day (in the morning); Duration: 30 day(s) Active Flonase Allergy Relief 50 MCG/ACT 2 spray(s) in each nostril bid Active Vitamin D3 125 MCG (5000 UT) 1 cap(s) orally daily alternating with 1000 IU QOD Active Montelukast Sodium 10 MG 1 tab(s) orally once a day; Duration: 90 days Active EPINEPHrine 0.3 MG/0.3ML as directed Inj ection as needed; Duration: 30 days Active SIT (TRADITIONAL) variable per schedule SC per schedule Active [employer] as directed Active PROAIR HFA CFC free 90 mcg/inh 2 puff(s) inhaled Q4-6 hours, PRN and per the asthma action plan; Duration: 30 days Active VITAMIN D3 5000 intl units 1 cap(s) orally daily alternating with 1000 IU QOD Active Trelegy Ellipta 200-62.5-25 MCG/ACT 1 puff Inhalation Once a day; Duration: 90 days Active Azelastine HCl 137 MCG/SPRAY 2 sprays in each nostril Nasally Twice a day; Duration: 30 days 01/26/2025 Active Azithromycin 250 MG 2 tabs day 1 then 1 tab daily orally Qday; Duration: 5 days 07/31/2021 Not-Taking predniSONE 20 MG 3 tab(s) orally once a day; Duration: 5 day(s) 07/31/2021 Not-Taki ng Immunizations Vaccine Route Administration Date Status Comme nts Covid 19 (Pfizer) Unknown 09/27/2020 Administered Covid 19 (Pfizer) Unknown 10/18/2020 Administered Covid 19 (Pfizer) Unknown 05/27/2021 Administered Flucelvax Unknown 05/07/2019 Refused Flucelvax Unknown 08/12/2019 Refused Flucelvax Unknown 05/12/2020 Administered Flucelvax IM Intramuscular 05/24/2021 Administered FluZone Quadrivalent IM Intramuscular 06/17/2015 Administe red Influenza Unknown 04/10/2018 Refused NOC Afluria Quad (MDV) 3 years and older IM Intramuscular 07/09/2023 Administered NOC Flucelevax Quadrivalent Unknown 05/10/2020 Refused NOC Flucelevax Quadrivalent IM Intramuscular 05/12/2020 Administered NOC Flucelevax Quadrivalent Unknown 05/24/2021 Administered NOC Fluzone Quadrivalent IM Intramuscular 07/10/2018 Admin istered NOC Fluzone Quadrivalent Unknown 10/09/2018 Refused NOC Pneumovax 23 IM Intramuscular 01/07/2013 Administered Pedvax Hib IM Intramuscular 05/30/2021 Administered Pneumovax 23 IM Intramuscular 05/30/2021 Administered Social History Tobacco Use: Social History Observation Description Date Details (start date - stop date) Current Smoker NA - NA Sex Assigned At : Social History Observation Description Sex Assigned At Female Smoking Smart Form: Question Answer Notes Are you a: current smoker How often do you smoking Cigarettes? every day How many cigarettes a day do you smoke? 11-20 How soon after you wake up do you smoke your fir st cigarette? 31-60 min Tobacco Control (Standard) Question Answer Notes Tobacco use: Current smoker AUDIT-C (Standard) Question Answer Notes Did you have a drink containing alcohol in the p ast year? No Points 0 Interpretation Negative Problems Problem Type SNOMED Code ICD Code Onset Dates Problem Status W/U Status Risk Notes Problem Vitamin D deficiency (42010979) Vitamin D deficiency, unspecified (E55.9) Active confirmed Problem Chronic allergic conjunctivitis (68732876) Other chronic allergic conjunctivitis (H10.45) Active confirmed Problem Allergic rhinitis caused by pollen (disorder) (99888768) Allergic rhinitis due to pollen (J30.1) Active confirmed Problem Allergic rhinitis caused by animal hair and dander (632573905041047) Allergic rhinitis due to animal (cat) (dog) hair and dander (J30.81) Active confirmed Problem Allergic rhinitis (40671921) Other allergic rhinitis (J30.89) Active confirmed Problem Chronic sinusitis (37962479) Chronic sinusitis, unspecified (J32.9) Active confirmed Problem Elevated blood pressure reading without diagnosis of hypertension (889209290) Elevated blood-pressure reading, without diagnosis of hypertension (R03.0) Active confirmed Problem Cough (47896106) Cough (R05) Active confirmed Problem Snoring (10278116) Snoring (R06.83) Active confirmed Vital Signs Oximetry 98 % 01/26/2025 Blood pressure diastolic 85 mm Hg 01/26/2025 Height 64 in 01/26/2025 Blood pressure systolic 147 mm Hg 01/26/2025 Weight 237.0 lbs 01/26/2025 BMI 40.68 kg/m2 01/26/2025 Encounters Encounter Location Date Provider Diagnosis [address] [address] 02/12/2024 Elliot Swanson Allergic rhinitis du e to pollen J30.1 ; Allergic rhinitis due to animal (cat) (dog) hair and dander J30.81 ; Other allergic rhinitis J30.89 and Other chronic allergic conjunctivitis H10.[address] [address] 03/10/2024 Flakita Martinez Moderate persistent asthma, uncomplicated J45.40 ; Severe persistent asthma, uncomplicated J45.50 ; Allergic rhinitis due to pollen J30.1 ; Allergic rhinitis due to animal (cat) (dog) hair and dander J30.81 ; Other allergic rhinitis J30.89 ; Other chronic allergic conjunctivitis H10.45 ; Chronic sinusitis, unspecified J32.9 and Elevated blood-pressure reading, without diagnosis of hypertension R03.[address] [address] 04/07/2024 Elliot Swanson Allergic rhinitis du e to pollen J30.1 ; Allergic rhinitis due to animal (cat) (dog) hair and dander J30.81 ; Other allergic rhinitis J30.89 and Other chronic allergic conjunctivitis H10.[address] [address] 05/05/2024 Elliot Swanson Allergic rhinitis du e to pollen J30.1 ; Allergic rhinitis due to animal (cat) (dog) hair and dander J30.81 ; Other allergic rhinitis J30.89 and Other chronic allergic conjunctivitis H10.[address] [address] 05/12/2024 Flakita Martinez Moderate persistent asthma, uncomplicated J45.40 ; Severe persistent asthma, uncomplicated J45.50 ; Allergic rhinitis due to pollen J30.1 ; Allergic rhinitis due to animal (cat) (dog) hair and dander J30.81 ; Other allergic rhinitis J30.89 ; Other chronic allergic conjunctivitis H10.45 ; Chronic sinusitis, unspecified J32.9 and Elevated blood-pressure reading, without diagnosis of hypertension R03.0 [facility] [place] [address] [place] [address] 06/02/2024 Elliot Swanson Allergic rhinitis du e to pollen J30.1 ; Allergic rhinitis due to animal (cat) (dog) hair and dander J30.81 ; Other allergic rhinitis J30.89 and Other chronic allergic conjunctivitis H10.45 [facility] [place] [address] [place] [address] 06/30/2024 Elliot Swanson Allergic rhinitis du e to pollen J30.1 ; Allergic rhinitis due to animal (cat) (dog) hair and dander J30.81 ; Other allergic rhinitis J30.89 and Other chronic allergic conjunctivitis H10.45 [facility] [place] [address] [place] [address] 07/07/2024 Elliot Swanson Allergic rhinitis du e to pollen J30.1 ; Allergic rhinitis due to animal (cat) (dog) hair and dander J30.81 ; Other allergic rhinitis J30.89 and Other chronic allergic conjunctivitis H10.45 [facility] [place] [address] [place] [address] 07/14/2024 Elliot Swanson Allergic rhinitis du e to pollen J30.1 ; Allergic rhinitis due to animal (cat) (dog) hair and dander J30.81 ; Other allergic rhinitis J30.89 and Other chronic allergic conjunctivitis H10.45 [facility] [place] [address] [place] [address] 08/06/2024 Elliot Swanson Allergic rhinitis du e to pollen J30.1 ; Allergic rhinitis due to animal (cat) (dog) hair and dander J30.81 ; Other allergic rhinitis J30.89 and Other chronic allergic conjunctivitis H10.45 [facility] [place] [address] [place] [address] 09/08/2024 Flakita Martinez Moderate persistent asthma, uncomplicated J45.40 ; Severe persistent asthma, uncomplicated J45.50 ; Allergic rhinitis due to pollen J30.1 ; Allergic rhinitis due to animal (cat) (dog) hair and dander J30.81 ; Other allergic rhinitis J30.89 ; Other chronic allergic conjunctivitis H10.45 ; Chronic sinusitis, unspecified J32.9 and Elevated blood-pressure reading, without diagnosis of hypertension R03.0 [facility] [address] [place] [address] 10/06/2024 Elliot Swanson Allergic rhinitis du e to pollen J30.1 ; Allergic rhinitis due to animal (cat) (dog) hair and dander J30.81 ; Other allergic rhinitis J30.89 and Other chronic allergic conjunctivitis H10.45 [facility] [address] [place] [address] 11/03/2024 Elliot Sky Allergic rhinitis du e to pollen J30.1 ; Allergic rhinitis due to animal (cat) (dog) hair and dander J30.81 ; Other allergic rhinitis J30.89 and Other chronic allergic conjunctivitis H10.45 [facility] [address] [place] [address] 12/01/2024 Elliot Sky Allergic rhinitis du e to pollen J30.1 ; Allergic rhinitis due to animal (cat) (dog) hair and dander J30.81 ; Other allergic rhinitis J30.89 and Other chronic allergic conjunctivitis H10.45 [facility] [address] [place] [address] 12/29/2024 Elliot Sky Allergic rhinitis du e to pollen J30.1 ; Allergic rhinitis due to animal (cat) (dog) hair and dander J30.81 ; Other allergic rhinitis J30.89 and Other chronic allergic conjunctivitis H10.45 [facility] [address] [place] [address] 01/26/2025 Bhargavi Diehl Severe persistent asthma, uncomplicated J45.50 ; Allergic rhinitis due to pollen J30.1 ; Allergic rhinitis due to animal (cat) (dog) hair and dander J30.81 ; Other allergic rhinitis J30.89 ; Other chronic allergic conjunctivitis H10.45 ; Chronic sinusitis, unspecified J32.9 and Elevated blood-pressure reading, without diagnosis of hypertension R03.0 [facility] [place] [address] [place] [address] 09/09/2024 Flakita Martinez [facility] [place] [address] [place] [address] 07/06/2024 Elliot Swanson Moderate persistent asthma, uncomplicated J45.40 [facility] [place] [address] [place] [address] 07/06/2024 Elliot Swanson Assessments Encounter Date Diagnosis (ICD Code) Assessment Notes Treatment Notes Treatment Clinical Notes Section Notes 02/12/2024 Allergic rhinitis due to pollen (ICD-10 - J30.1) 04/07/2024 Allergic rhinitis due to pollen (ICD-10 - J30.1) 05/05/2024 Allergic rhinitis due to pollen (ICD-10 - J30.1) 03/10/2024 Moderate persistent asthma, uncomplicated (ICD-10 - J45.40) Sangeeta returns, again reporting shortness of breath with exertion, however feels Trelegy continues to work well for her. She denies interval SLOAN use, ACT is 25. Spirometry at last visit showed normal FVC, with reduced FEV1 and FEV1%. FVL shows expiratory scalloping c/w obstruction. Advanced lung age. . Previously smoking approximately 20 cigarettes per day, now down to 10 cigarettes per day. Spirometry today still showing obstruction, with normal FVC, FEV1 with reduced FEV% suggesting obstruction. FVL shows scalloping on exhalation. Advanced lung age. FV decreased by 230cc and FEV1 decreased by 170cc compared to 03/2023 spirometry. - Continue Trelegy 200/62.5/25mcg. Continue to rinse mouth out after inhalation. Again, discussed that next step in therapy would likely be a biologic. Instructed her to contact the office if her symptoms increase or if she has increased SLOAN use. - Given spirometry today, will order biologic workup. - Recommend restarting Singulair. - Continue SLOAN with spacer. - Continue to follow AAP for yellow zone activity. - Highly consider smoking cessation. Again, recommended additional discussion with PCP re: other cessation options. - Follow-up in 1-2 months for further evaluation and management 03/10/2024 Severe persistent asthma, uncomplicated (ICD-10 - J45.50) 05/12/2024 Moderate persistent asthma, uncomplicated (ICD-10 - J45.40) Sangeeta returns, again reporting shortness of breath with exertion, however feels Trelegy continues to work well for her. She denies interval LSOAN use, ACT is 25. Spirometry at last visit showed normal FVC, with reduced FEV1 and FEV1%. FVL shows expiratory scalloping c/w obstruction. Advanced lung age. . Previously smoking approximately 20 cigarettes per day, now down to 10 cigarettes per day. Spirometry today still showing obstruction, with normal FVC, FEV1 with reduced FEV% suggesting obstruction. FVL shows scalloping on exhalation. Advanced lung age. FVC decreased by 230cc and FEV1 decreased by 170cc compared to 03/2023 spirometry. - Continue Trelegy 200/62.5/25mcg. Refills sent. Continue to rinse mouth out after inhalation. Again, discussed that next step in therapy would likely be a biologic. She denies lower airway symptoms at this time. Instructed her to contact the office if her symptoms increase or if she has increased SLOAN use. - Biologic workup ordered after last visit - abs eosinophils 220 and total IgE 56. Some abnormalities seen on CBC, incuding mildly elevates RBC, HCT, Plt and low MCHC. Results forwarded to PCP. Plan for repeat in 2-4 weeks - Continue Singulair. - Continue SLOAN with spacer. - Continue to follow AAP for yellow zone activity. - Highly consider smoking cessation. Again, recommended additional discussion with PCP re: other cessation options. - Recommend pulmonary evaluation given long-term smoking status and obstruction on spirometry concerning for other obstructive diseases. Recommen full PFTs. She also denies low-res CT scan given smoking history. Referral to be sent to Dr. Hiwot Muñiz. - Follow-up in 3 months for further evaluation and management 05/12/2024 Severe persistent asthma, uncomplicated (ICD-10 - J45.50) Now on high-dose Trelegy and LTRA. 06/02/2024 Allergic rhinitis due to pollen (ICD-10 - J30.1) 06/30/2024 Allergic rhinitis due to pollen (ICD-10 - J30.1) 07/07/2024 Allergic rhinitis due to pollen (ICD-10 - J30.1) 07/14/2024 Allergic rhinitis due to pollen (ICD-10 - J30.1) 08/06/2024 Allergic rhinitis due to pollen (ICD-10 - J30.1) 07/06/2024 Moderate persistent asthma, uncomplicated (ICD-10 - J45.40) 09/08/2024 Moderate persistent asthma, uncomplicated (ICD-10 - J45.40) Sangeeta returns, again reporting shortness of breath with exertion, however feels Trelegy continues to work well for her. She denies interval SLOAN use, ACT is 25. Spirometry at prior visit showed normal FVC, with reduced FEV1 and FEV1%. FVL shows expiratory scalloping c/w obstruction. Advanced lung age. Previously smoking approximately 20 cigarettes per day, now down to 10 cigarettes per day. Spirometrylast visit still showing obstruction, with normal FVC, FEV1 with reduced FEV% suggesting obstruction. FVL shows scalloping on exhalation. Advanced lung age. FVC decreased by 230cc and FEV1 decreased by 170cc compared to 03/2023 spirometry. - Continue Trelegy 200/62.5/25mcg. Refills sent. Continue to rinse mouth out after inhalation. Again, discussed that next step in therapy would likely be a biologic. She denies lower airway symptoms at this time. Instructed her to contact the office if her symptoms increase or if she has increased SLOAN use. - Biologic workup ordered after last visit - abs eosinophils 220 and total IgE 56. Some abnormalities seen on CBC, incuding mildly elevates RBC, HCT, Plt and low MCHC. Results forwarded to PCP. Repeat CBC showed elevated RBC 5.33, HCT 45.9, Plt 412. Low MCHC 31.6. Patient was referred to hematology per PCP. Slated for appointment in 10/2024. - Continue Singulair. Refills sent. - Continue SLOAN with spacer. - Continue to follow AAP for yellow zone activity. - Highly consider smoking cessation. Again, recommended additional discussion with PCP re: other cessation options. - Recommend pulmonary evaluation given long-term smoking status and obstruction on spirometry concerning for other obstructive diseases. Recommend full PFTs. She also denies low-res CT scan given smoking history. Referral previously sent to Dr. Hiwot Muñiz, but patient has not heard from office. Will resend referral and have office follow-up. - Follow-up in 3 months for further evaluation and management 09/08/2024 Severe persistent asthma, uncomplicated (ICD-10 - J45.50) Now on high-dose Trelegy and LTRA. 10/06/2024 Allergic rhinitis due to pollen (ICD-10 - J30.1) 11/03/2024 Allergic rhinitis due to pollen (ICD-10 - J30.1) 12/01/2024 Allergic rhinitis due to pollen (ICD-10 - J30.1) 12/29/2024 Allergic rhinitis due to pollen (ICD-10 - J30.1) 01/26/2025 Allergic rhinitis due to pollen (ICD-10 - J30.1) Sangeeta continues on SCIT, previously reformulated in 03/2017. She states she has had fewer sinus infections since starting SCIT, none since last visit. Dosing tolerated today without local or systemic reaction. - Continue medications as listed above. Start azelastine due to PND. - Increase SCIT frequency prn. - AIE is on hand. Patient will carry for 2 hours after SCIT visits. - Follow-up as scheduled for SCIT and in 3-4 months for further evaluation and management as above 01/26/2025 Severe persistent asthma, uncomplicated (ICD-10 - J45.50) Sangeeta returns feeling well. She has previously reported shortness of breath with exertion, however feels Trelegy continues to work well for her. She denies interval SLOAN use, ACT is 25. Spirometry at prior visit showed normal FVC, with reduced FEV1 and FEV1%. FVL shows expiratory scalloping c/w obstruction. Advanced lung age. Previously smoking approximately 20 cigarettes per day, now down to 10 cigarettes per day. Spirometry last visit still showing obstruction, with normal FVC, FEV1 with reduced FEV% suggesting obstruction. FVL shows scalloping on exhalation. Advanced lung age. FVC decreased by 230cc and FEV1 decreased by 170cc compared to 03/2023 spirometry. - Repeat spirometry deferred today as Sangeeta is slated for PFT with pulmonology. - Continue Trelegy 200/62.5/25mcg. Refills sent. Continue to rinse mouth out after inhalation. Again, discussed that next step in therapy would likely be a biologic. She denies lower airway symptoms at this time. Instructed her to contact the office if her symptoms increase or if she has increased SLOAN use. - Biologic workup ordered previously - abs eosinophils 220 and total IgE 56. Some abnormalities seen on CBC, including mildly elevates RBC, HCT, Plt and low MCHC. Results forwarded to PCP. Repeat CBC showed elevated RBC 5.33, HCT 45.9, Plt 412. Low MCHC 31.6. Patient was referred to hematology per PCP. - Continue Singulair. - Continue SLOAN with spacer. - Continue to follow AAP for yellow zone activity. - Highly consider smoking cessation. Again, recommended additional discussion with PCP re: other cessation options. - Previously recommended pulmonary evaluation; Sangeeta is now established with [facility]. She reports clear CT scan, slated for PFT. No changes made to her plan of care at this time. - Follow-up in 3 months for further evaluation and management 01/26/2025 Allergic rhinitis due to animal (cat) (dog) hair and dander (ICD-10 - J30.81) Continue avoidance, meds and SCIT per schedule. Increase frequency PRN 12/29/2024 Allergic rhinitis due to animal (cat) (dog) hair and dander (ICD-10 - J30.81) 12/01/2024 Allergic rhinitis due to animal (cat) (dog) hair and dander (ICD-10 - J30.81) 11/03/2024 Allergic rhinitis due to animal (cat) (dog) hair and dander (ICD-10 - J30.81) 10/06/2024 Allergic rhinitis due to animal (cat) (dog) hair and dander (ICD-10 - J30.81) 08/06/2024 Allergic rhinitis due to animal (cat) (dog) hair and dander (ICD-10 - J30.81) 09/08/2024 Allergic rhinitis due to pollen (ICD-10 - J30.1) Sangeeta continues on SCIT, previously reformulated in 03/2017. She states she has had fewer sinus infections since starting SCIT, none since last visit. Dosing tolerated today without local or systemic reaction. - Continue medications as listed above. - Increase SCIT frequency prn. - AIE , refill sent. Patient will carry for 2 hours after SCIT visits. - Follow-up in 4 weeks for SCIT 07/14/2024 Allergic rhinitis due to animal (cat) (dog) hair and dander (ICD-10 - J30.81) 07/07/2024 Allergic rhinitis due to animal (cat) (dog) hair and dander (ICD-10 - J30.81) 06/30/2024 Allergic rhinitis due to animal (cat) (dog) hair and dander (ICD-10 - J30.81) 06/02/2024 Allergic rhinitis due to animal (cat) (dog) hair and dander (ICD-10 - J30.81) 05/12/2024 Allergic rhinitis due to pollen (ICD-10 - J30.1) Sangeeta continues on SCIT, previously reformulated in 03/2017. She states she has had fewer sinus infections since starting SCIT, none since last visit. Not due for dosing today. - Continue medications as listed above. - Increase SCIT frequency prn. - AIE up to date and will carry for 2 hours after SCIT visits. - Follow-up in 4 weeks for SCIT 05/05/2024 Allergic rhinitis due to animal (cat) (dog) hair and dander (ICD-10 - J30.81) 04/07/2024 Allergic rhinitis due to animal (cat) (dog) hair and dander (ICD-10 - J30.81) 02/12/2024 Allergic rhinitis due to animal (cat) (dog) hair and dander (ICD-10 - J30.81) 03/10/2024 Allergic rhinitis due to pollen (ICD-10 - J30.1) Sangeeta continues on SCIT, previously reformulated in 03/2017. She states she has had fewer sinus infections since starting SCIT, none since last visit. Dosing tolerated today without local or systemic reaction. - Continue medications as listed above. - Increase SCIT frequency prn. - AIE up to date and will carry for 2 hours after SCIT visits. - Follow-up in 4 weeks for SCIT 03/10/2024 Allergic rhinitis due to animal (cat) (dog) hair and dander (ICD-10 - J30.81) Continue avoidance, meds and SCIT per schedule. Increase frequency PRN 02/12/2024 Other allergic rhinitis (ICD-10 - J30.89) 04/07/2024 Other allergic rhinitis (ICD-10 - J30.89) 05/05/2024 Other allergic rhinitis (ICD-10 - J30.89) 05/12/2024 Allergic rhinitis due to animal (cat) (dog) hair and dander (ICD-10 - J30.81) Continue avoidance, meds and SCIT per schedule. Increase frequency PRN 06/02/2024 Other allergic rhinitis (ICD-10 - J30.89) 06/30/2024 Other allergic rhinitis (ICD-10 - J30.89) 07/07/2024 Other allergic rhinitis (ICD-10 - J30.89) 07/14/2024 Other allergic rhinitis (ICD-10 - J30.89) 09/08/2024 Allergic rhinitis due to animal (cat) (dog) hair and dander (ICD-10 - J30.81) Continue avoidance, meds and SCIT per schedule. Increase frequency PRN 08/06/2024 Other allergic rhinitis (ICD-10 - J30.89) 10/06/2024 Other allergic rhinitis (ICD-10 - J30.89) 11/03/2024 Other allergic rhinitis (ICD-10 - J30.89) 12/01/2024 Other allergic rhinitis (ICD-10 - J30.89) 12/29/2024 Other allergic rhinitis (ICD-10 - J30.89) 01/26/2025 Other allergic rhinitis (ICD-10 - J30.89) Continue avoidance, meds and SCIT per schedule. Increase frequency PRN 01/26/2025 Other chronic allergic conjunctivitis (ICD-10 - H10.45) Follow allergen avoidance, meds and SCIT per schedule. Increase frequency PRN 12/29/2024 Other chronic allergic conjunctivitis (ICD-10 - H10.45) 12/01/2024 Other chronic allergic conjunctivitis (ICD-10 - H10.45) 10/06/2024 Other chronic allergic conjunctivitis (ICD-10 - H10.45) 11/03/2024 Other chronic allergic conjunctivitis (ICD-10 - H10.45) 07/07/2024 Other chronic allergic conjunctivitis (ICD-10 - H10.45) 09/08/2024 Other allergic rhinitis (ICD-10 - J30.89) Continue avoidance, meds and SCIT per schedule. Increase frequency PRN 08/06/2024 Other chronic allergic conjunctivitis (ICD-10 - H10.45) 07/14/2024 Other chronic allergic conjunctivitis (ICD-10 - H10.45) 04/07/2024 Other chronic allergic conjunctivitis (ICD-10 - H10.45) 06/02/2024 Other chronic allergic conjunctivitis (ICD-10 - H10.45) 06/30/2024 Other chronic allergic conjunctivitis (ICD-10 - H10.45) 05/12/2024 Other allergic rhinitis (ICD-10 - J30.89) Continue avoidance, meds and SCIT per schedule. Increase frequency PRN 05/05/2024 Other chronic allergic conjunctivitis (ICD-10 - H10.45) 03/10/2024 Other allergic rhinitis (ICD-10 - J30.89) Continue avoidance, meds and SCIT per schedule. Increase frequency PRN 02/12/2024 Other chronic allergic conjunctivitis (ICD-10 - H10.45) 03/10/2024 Other chronic allergic conjunctivitis (ICD-10 - H10.45) Follow allergen avoidance, meds and SCIT per schedule. Increase frequency PRN 05/12/2024 Other chronic allergic conjunctivitis (ICD-10 - H10.45) Follow allergen avoidance, meds and SCIT per schedule. Increase frequency PRN 09/08/2024 Other chronic allergic conjunctivitis (ICD-10 - H10.45) Follow allergen avoidance, meds and SCIT per schedule. Increase frequency PRN 01/26/2025 Chronic sinusitis, unspecified (ICD-10 - J32.9) Sangeeta previously suffered from recurrent sinusitis, but since starting SCIT, medications, and avoidance measures, she has seen a dramatic decrease in number and severity of infections, with no interval infections. - Vitamin D now 57.5. Continue supplementation and recheck in 1 year (04/2025). 01/26/2025 Elevated blood-pressure reading, without diagnosis of hypertension (ICD-10 - R03.0) BP elevated today without symptoms of urgency or emergency. Continue serial checks and follow-up with PCP 09/08/2024 Chronic sinusitis, unspecified (ICD-10 - J32.9) Sangeeta previously suffered from recurrent sinusitis, but since starting SCIT, medications, and avoidance measures, she has seen a dramatic decrease in number and severity of infections, with no interval infections. - Vitamin D now 57.5. Continue supplementation and recheck in 1 year (04/2025). 05/12/2024 Chronic sinusitis, unspecified (ICD-10 - J32.9) Sangeeta previously suffered from recurrent sinusitis, but since starting SCIT, medications, and avoidance measures, she has seen a dramatic decrease in number and severity of infections, with no interval infections. - Vitamin D now 57.5. Continue supplementation and recheck in 1 year (04/2025). 03/10/2024 Chronic sinusitis, unspecified (ICD-10 - J32.9) Sangeeta previously suffered from recurrent sinusitis, but since starting SCIT, medications, and avoidance measures, she has seen a dramatic decrease in number and severity of infections, with no interval infections. - Will recheck Vitamin D now as last recheck was 2020. 05/12/2024 Elevated blood-pressure reading, without diagnosis of hypertension (ICD-10 - R03.0) BP elevated today without symptoms of urgency or emergency. Continue serial checks and follow-up with PCP 03/10/2024 Elevated blood-pressure reading, without diagnosis of hypertension (ICD-10 - R03.0) BP elevated today without symptoms of urgency or emergency. Continue serial checks and follow-up with PCP 09/08/2024 Elevated blood-pressure reading, without diagnosis of hypertension (ICD-10 - R03.0) BP elevated today without symptoms of urgency or emergency. Continue serial checks and follow-up with PCP 03/10/2024 Other 05/12/2024 Other 09/08/2024 Other 01/26/2025 Other Plan Of Treatment Pending Test Test Name Order Date Spirometry 04/03/2023 CBC (INCLUDES DIFF/PLT) 05/12/2024 Influenza A+B - Infectious a gent antigen detection by EIA/NIRAV/IMCA (BD Veritor) 07/31/2021 Next Appt Details Provider Name:Elliot Swanson , 02/23/2025 04:30:00 PM, [address] [place], [address], Provider Name:Bhargavi berry, 06/03/2025 03:15:00 PM, [address] [place], [address], Insurance Providers Payer Name Payer Address Payer Phone Subscriber Number Group Number Insured Name Patient Relationship to Insured Coverage Start Date Coverage End Date [facility] [address] [place] [address] [id number] Sangeeta Lai Self - patient is the insured 4 Medical (General) History Medical History History ICD Code Allergic rhinitis due to pollen Allergic rhinitis due to animal (cat) (d og) hair and dander Other allergic rhinitis Other chronic allergic conjunctivitis Chronic sinusitis, unspecified Vitamin D deficiency, unspecified Snoring Cough Elevated blood-pressure reading, without diagnosis of hypertension Moderate persistent asthma, uncomplicate d hypro Surgical History Surgery Date(Month/Year) septoplasty 10/2012 (L) Knee Surgery 08/2014
--- OUTSIDE RECORDS SUMMARY | 2025-02-01 13:39 | XMS_ITS | Clinical Summary ---
Author Organization [facility] [address] at the Medical Office Building Address [address] [place] [id number] Care Team Providers Care Clinical Instructor Name Role Phone Leatha Marcos NP Primary Care Provider Allergies Active Allergy Reactions Criticality Noted Date [...] Active Trelegy Ellipta 200-62.5-25 mcg inhaler 02/08/20 23 Active betamethasone dipropionate (DIPROSONE) 0.05 % lotion APPLY TOPICALLY TO AFFECTED AREA ON SCALP 1-2 TIMES DAILY 05/21/20 23 Active doxycycline hyclate 50 mg tablet 09/09/19 24 Active Active Problems Problem Noted Date Diagnosed Date Cigarette nicotine dependence without complicati on 08/04/2024 Assessment & Plan (08/04/2024 4:50 PM PIT CREW SUPPORT WORKER): Patient is current daily cigarette smoker. She is not interested in smoking cessation at this time. Follow up in 6 months. Moderate persistent asthma without complication 07/27/2024 Assessment & Plan (08/04/2024 4:45 PM PIT CREW SUPPORT WORKER): Chronic, controlled with Trelegy daily and albuterol inhaler PRN. Follow up in 6 months. Seasonal allergies 07/27/2024 Assessment & Plan (08/04/2024 4:46 PM PIT CREW SUPPORT WORKER): Chronic, controlled with Singular 10 mg nightly, Zyrtec 10 mg daily, and Flonase daily. Follow up in 6 months. Routine general medical exam ination at a [facility] care facility 07/11/2023 Assessment & Plan (08/04/2024 4:48 PM PIT CREW SUPPORT WORKER): CBC, CMP, lipid panel ordered. Mammogram last completed: 12/2023 Pap last completed: 09/2023, patient following with TWO NEEDLE MACHINE OPERATOR. Colonoscopy last completed: 01/2024. Vaccinations: COVID, Shingrix, and Flu vaccines UTD. Repeat wellness exam in one year. Assessment & Plan (07/15/2023 3:51 PM PIT CREW SUPPORT WORKER): Healthcare maintenance updated, work on diet and weight, labs as ordered. We also discussed smoking sensation Anogenital (venereal) warts 11/30/2016 Resolved Problems Problem Noted Date Diagnosed Date Resolved Date Screen for colon cancer 11/11/20230 01/2025 Screening for colon cancer 09/26/2023 0 08/04/2024 Acute left ankle pain 01/22/20192024 Assessment & Plan (01/22/2019 4:17 PM CDT): Unclear specific diagnosis. Most likley appear tendon/ligament strain/sprain. Recommend to see Full Service Vending Driver if symptoms persist consider improvising shoe and standing. Encounters Date Type Department Care Team Description 01/08/2025 Results Follow-Up [facility] Obstetrical Gynecology [address] [place] [address] Saurabh Urbina MD Screening Mammogram Bilateral W Young 01/07/2025 4:17 PM CDT - 01/07/2025 11:59 PM CDT Hospital Encounter [facility] Medical Office [address] 1 [facility] [address] [place] [address] [address] [place] [address] Encounter for screening mammogram for malignant neoplasm of breast Discharge Disposition: Discharge to home or self care 01/06/2025 Results Follow-Up [facility] Obstetrical Gynecology [address] [place] [address] Saurabh Urbina MD Pap and High Risk HPV and Genotyping (Cytology Component) 12/28/2024 6:22 PM CDT - 12/28/2024 11:59 PM CDT Hospital Encounter [facility] Lab [address] [place] [address] Benign-appearing endometrial cells on cervical Pap smear Discharge Disposition: Discharge to home or self care 12/28/2024 4:00 PM CDT Office Visit [facility] Obstetrical Gynecology [address] [place] [address] Saurabh Urbina MD Benign-appearing endometrial cells on cervical Pap smear (Primary Dx) 12/15/2024 3:00 PM CDT Office Visit [facility] Hematology [address] [place] [address] [address] [place] [address] Nancy Arvizu MD Elevated hematocrit (Primary Dx) 12/15/2024 2:45 PM CDT Lab [facility] [place] at [address] [address] Elevated hematocrit 12/09/2024 4:30 PM CDT Lab [facility] Cancer [address] [address] Elevated hematocrit 12/08/2024 3:30 PM CDT Clinical Support [facility] Primary Care [address] [place] [address] [address] [place] [phone] Encounter for immunization (Primary Dx) 11/24/2024 4:30 PM CDT Lab [facility] [place] at [address] [address] Elevated hematocrit 11/10/2024 4:30 PM CDT Lab [facility] at [address] [address] Elevated hematocrit 11/02/2024 Results Follow-Up [facility] Obstetrical Gynecology [address] [facility] [address] [place] [address] Saurabh Urbina MD Pap and High Risk HPV and Genotyping (Cytology Component) from Last 3 Months Immunizations Immunization Administration Dates Next Due Hib (PRP-OMP) 05/30/2021 Influenza, Quadrivalent, Daphne l Culture-based MDCK, Antibiotic Free, Intramuscular 05/24/2021 Influenza, Quadrivalent, Daphne l Culture-based MDCK, Preservative Free, Antibiotic Free, Intramuscular 05/12/2020 Influenza, Quadrivalent, Spl it, Intramuscular 07/09/2023 Influenza, Trivalent, IM (MDV) 07/10/2018 Influenza, Unspecified 05/29/2024(Deferr ed: Patient Refused),07/09/2023,07/15/2022(Deferre d: Patient decision),06/12/2022(Deferred: Patient Refused) Pneumococcal Polysaccharide PPV23 05/30/2021 ZOSTER Recombinant 12/08/2024,07/27/2024 Surgical History Surgery Date Site/Laterality Comments NASAL SEPTUM SURGERY KNEE SURGERY Left torn meniscus GYNECOLOGIC CRYOSURGERY 07/25/2020 in office Medical History Medical History Date Comments History of abnormal cervical Pap smear Rosacea Acne Asthma PONV (postoperative nausea and vomiting) Family History Medical History Relation Name Comments No Known Problems Father No Known Problems Mother Breast cancer Neg Hx Ovarian cancer Neg Hx Relation Name Status Comments Father Alive Mother Alive Social History Tobacco Use Types Packs/Day Years [...] CDT Gender Identity Female 05/29/2020 9:52 PM PIT CREW SUPPORT WORKER Sexual Orientation Straight 08/08/2021 2: 57 PM PIT CREW SUPPORT WORKER Obstetrics History Para Term AB IAB SAB Ectopic Multiple Livin g Live Births 0 0 0 0 0 0 0 0 0 0 0 Comments 13/0 Last Filed Vital Signs Vital Sign Reading [...] 12/28/2024 3:57 PM CDT Plan of Treatment Health Maintenance Due Date Last Done Comments Hepatitis C Screening 1970 DTaP/Tdap/Td Vaccine (1 - Tdap) 1981 Hepatitis B Screening 1988 Pneumococcal vaccine <65 (2 of 2 - PCV) 05/30/2022 05/30/2021 Influenza Vaccine (Season Ended) 2025 07/09/2023, 07/09/2023, 05/24/2021, Additional history exists Covid-19 Vaccine ( season) 2025 05/27/2021, 10/18/2020, 09/27/2020 Postponed from 03/29/2024 (Patient declined, but will receive in the future) Depression Screening 07/27/2025 07/27/2024, 03/28/20 Regular Well Visit/Exam 18-64 10/23/2025 10/23/2024, 07/27/2024, 10/23/2023, Additional history exists Cervical Cancer Screening 12/28/20252024, 12/28/2024, 10/23/2024, Additional history exists Breast Cancer Screening-Mammogram 01/07/2026 01/07/2025, 01/07/2024, 11/19/2022, Additional history exists Colon Cancer Screening-Colonoscopy 01/26/2034 01/27/2024 Zoster Vaccine Completed 12/08/2024, 07/27/2024 Procedures Procedure Name Priority Date/Time Associated Diagnosis [...] Genotyping (Molecular component) (12/28/2024 4:25 PM CDT) HPV HR 16 Not Detected Not Detected BJ Comment:Testing performed by : [facility], [address] [place]., [address] HPV HR 18 Not Detected Not Detected DEX AZAR Comment:Testing performed by : [facility], [address] [facility] [place]., [address] HPV HR Non 16/18 Not Detected Not [...] this test have been verified by the [facility] Molecular Infectious Disease laboratory. Correlate with separately reported cytology results, as applicable. Interpretive data last revised 23 Testing performed by: [facility], [address] [place] [address]., [address] Endocervical 12/28/2024 4:25 PM CDT 12/30/2024 9:32 AM CDT Narrative DEX - 12/30/2024 8:24 PM CDT Clinical history and diagnosis->repeat Number of vials->1 Testing type->Screening Last menstrual period (date if known)->jl Menstrual status->Perimenopausal Saurabh Urbina MD LAB BODY FLUIDS AND STO OLS ORDERABLES Final Result DEX [address] [place] [address] [facility] * Pap and High Risk HPV and Genotyping (Cytology Component) (12/28/2024 4:25 PM CDT) Thin prep (Pap test) 12/28/2024 4:25 PM CDT 12/29/2024 6:38 AM CDT Narrative PATHOLOGY [facility] - 01/06/2025 10:21 AM CDT EPIC results best viewed via link to PDF [facility] [place] [address] Note to Patients: This report may contain [...] Gender: F : 1970 (Age: 54) Address: [address] [place] [address] Hospital #: [id number] Service: UNKNOWN Location: Patient Type: [facility] SPECIMEN Taken: 12/28/2024 Received: 12/29/2024 Accessioned: 12/29/2024 [...] test have been verified by the [facility] Molecular Infectious Disease laboratory. Correlate with reported cytology results, as applicable. Interpretive data last revised 23 This specimen has been rescreened in accordance with this laboratory's Chip Unloader Program. /01/06/2025 10:21 Zeus Vidal SCT(ASCP), [facility] Report Electronically Reviewed and Signed Out By [...] clinical information and biopsy results as indicated. [facility] Clinical Laboratory Improvement Amendments (CLIA) mandate that cytologic and histologic results be correlated for laboratory senior quality assurance engineer & improvement standards. FOR ALL HIGH-GRADE CASES [...] by the Surgical Pathology Department at [facility] as part of an ongoing quality assurance practice manager program and in compliance with federally mandated [...] by the Surgical Pathology Department of [facility]. It has not been cleared or approved by the U. S. Food and Drug Administration. Saurabh Urbina MD LAB CYTOLOGY ORDERABLES Final Result PATHOLOGY [facility] * Differential, auto (12/15/2024 2:31 PM CDT) Neutrophil abs 2.89 1.50 - 6.50 K/cumm Comment:Testing performed by : [address] [address] Imm gran abs 0.02 0.00 - 0.10 K/cumm [facility] Comment:Testing performed by : [address] [address] Lymphocyte abs 2.75 0.80 - 3.30 K/cumm [facility] Comment:Testing performed by : [address], [place]., [address] Monocyte abs 0.45 0.20 - 0.80 K/cumm [facility] Comment:Testing performed by : [address] [address] Eosinophil abs 0.20 0.00 - 0.50 K/cumm [facility] Comment:Testing performed by : [address] [address] Basophil abs 0.07 0.00 - 0.10 K/cumm [facility] Comment:Testing performed by : [address] [address] Neutrophil pct 45.3 % [facility] Comment: Interpretive Data Percent cell count reference ranges are not reported, since discordance with absolute values may lead to misinterpretation of CBC data. Current Interpretive Data was last revised on 2017. Testing performed by: [address] [address] Imm gran pct 0.3 % [facility] Comment: Interpretive Data Percent cell count reference ranges are not reported, since discordance with absolute values may lead to misinterpretation of CBC data. Current Interpretive Data was last revised on 2017. Testing performed by: [address] [address] Lymphocyte pct 43.1 % [facility] Comment: Interpretive Data Percent cell count reference ranges are not reported, since discordance with absolute values may lead to misinterpretation of CBC data. Current Interpretive Data was last revised on 2017. Testing performed by: [address] [address] Monocyte pct 7.1 % DEX Comment: Interpretive Data Percent cell count reference ranges are not reported, since discordance with absolute values may lead to misinterpretation of CBC data. Current Interpretive Data was last revised on 2017. Testing performed by: [address] [address] Eosinophil pct 3.1 % DEX Comment: Interpretive Data Percent cell count reference ranges are not reported, since discordance with absolute values may lead to misinterpretation of CBC data. Current Interpretive Data was last revised on 2017. Testing performed by: [address] [address] Basophil pct 1.1 % DEX Comment: Interpretive Data Percent cell count reference ranges are not reported, since discordance with absolute values may lead to misinterpretation of CBC data. Current Interpretive Data was last revised on 2017. Testing performed by: [address] [address] Blood 12/15/2024 2:31 PM CDT 12/15/2024 2:36 PM CDT us Nancy Arvizu MD LAB BLOOD ORDERABLES Geeta l Result [facility] [address] [place] [address] * (ABNORMAL) CBC with auto differential (12/15/2024 2:31 PM CDT) WBC 6.38 3.80 - 9.90 K/cumm Comment:Testing performed by : [address] [address] Hgb 14.3 11.9 - 15.5 g/dL DEX Comment:Testing performed by : [address] [address] Hct 43.5 35.6 - 45.5 % DEX Comment:Testing performed by : [address] [address] Plt 435(H) 150 - 400 K/cumm DEX Comment:Testing performed by : [address] [address] MPV 9.7 9.1 - 12.3 fL DEX Comment:Testing performed by : [address] [address] RBC 5.40(H) 3.90 - 5.20 M/cumm DEX Comment:Testing performed by : [address] [address] MCV 80.6(L) 81.3 - 96.4 fL DEX Comment:Testing performed by : [address] [address] MCH 26.5(L) 27.1 - 33.3 pg DEX Comment:Testing performed by : [address] [address] MCHC 32.9 32.3 - 35.7 g/dL DEX Comment:Testing performed by : [address], [address] RDW CV 13.3 11.1 - 14.9 % DEX Comment:Testing performed by : [address] [address] RDW SD 38.5 35.7 - 48.1 fL DEX Comment:Testing performed by : [address] [address] NRBC abs 0.00 0.00 - 0.01 K/cumm DEX Comment:Testing performed by : [address] [address] ANC Prelim 2.89 1.50 - 6.50 K/cumm DEX Comment: Interpretive Data The rapid ANC is a preliminary automated count and may vary from the final ANC (Neut Abs) reported in the WBC differential that follows. Current interpretive data was last revised 2024. Testing performed by: [address] [address] Blood 12/15/2024 2:31 PM CDT 12/15/2024 2:36 PM CDT Nancy Arvizu MD LAB BLOOD ORDERABLES Geeta nico Result [facility] [address] Department [place] [address] * (ABNORMAL) Differential, auto (12/09/2024 4:28 PM CDT) Neutrophil abs 6.51(H) 1.50 - 6.50 K/cumm Comment:Testing performed by : [address] [address] Imm gran abs 0.04 0.00 - 0.10 K/cumm DEX Comment:Testing performed by : [address] [address] Lymphocyte abs 1.93 0.80 - 3.30 K/cumm DEX Comment:Testing performed by : [address] [address] Monocyte abs 0.67 0.20 - 0.80 K/cumm DEX Comment:Testing performed by : [address] [address] Eosinophil abs 0.24 0.00 - 0.50 K/cumm DEX Comment:Testing performed by : [address] [address] Basophil abs 0.05 0.00 - 0.10 K/cumm DEX Comment:Testing performed by : [address] [address] Neutrophil pct 69.1 % DEX Comment: Interpretive Data Percent cell count reference ranges are not reported, since discordance with absolute values may lead to misinterpretation of CBC data. Current Interpretive Data was last revised on 2017. Testing performed by: [address] [address] Imm gran pct 0.4 % [facility] Comment: Interpretive Data Percent cell count reference ranges are not reported, since discordance with absolute values may lead to misinterpretation of CBC data. Current Interpretive Data was last revised on 2017. Testing performed by: [address] [address] Lymphocyte pct 20.4 % [facility] Comment: Interpretive Data Percent cell count reference ranges are not reported, since discordance with absolute values may lead to misinterpretation of CBC data. Current Interpretive Data was last revised on 2017. Testing performed by: [address] [address] Monocyte pct 7.1 % [facility] Comment: Interpretive Data Percent cell count reference ranges are not reported, since discordance with absolute values may lead to misinterpretation of CBC data. Current Interpretive Data was last revised on 2017. Testing performed by: [address] [address] Eosinophil pct 2.5 % [facility] Comment: Interpretive Data Percent cell count reference ranges are not reported, since discordance with absolute values may lead to misinterpretation of CBC data. Current Interpretive Data was last revised on 2017. Testing performed by: [address] [address] Basophil pct 0.5 % [facility] Comment: Interpretive Data Percent cell count reference ranges are not reported, since discordance with absolute values may lead to misinterpretation of CBC data. Current Interpretive Data was last revised on 2017. Testing performed by: [address] [address] Blood 12/09/2024 4:28 PM CDT 12/09/2024 4:29 PM CDT us Nancy Arvizu MD LAB BLOOD ORDERABLES Geeta walsh Result DEX AZAR [address] Department [place] [address] * (ABNORMAL) CBC with auto differential (12/09/2024 4:28 PM CDT) [facility] WBC 9.44 3.80 - 9.90 K/cumm Comment:Testing performed by : [address], [address] Hgb 13.9 11.9 - 15.5 g/dL DEX Comment:Testing performed by : [address] [address] Hct 42.3 35.6 - 45.5 % DEX Comment:Testing performed by : [address] [address] Plt 340 150 - 400 K/cumm DEX Comment:Testing performed by : [address], [address] MPV 9.8 9.1 - 12.3 fL DEX Comment:Testing performed by : [address], [address] RBC 5.20 3.90 - 5.20 M/cumm DEX Comment:Testing performed by : [address] [address] MCV 81.3 81.3 - 96.4 fL DEX Comment:Testing performed by : [address], [address] MCH 26.7(L) 27.1 - 33.3 pg DEX Comment:Testing performed by : [address] [address] MCHC 32.9 32.3 - 35.7 g/dL DEX Comment:Testing performed by : [address], [address] RDW CV 13.3 11.1 - 14.9 % DEX Comment:Testing performed by : [address], [address] RDW SD 39.2 35.7 - 48.1 fL DEX Comment:Testing performed by : [address] [address] NRBC abs 0.00 0.00 - 0.01 K/cumm DEX Comment:Testing performed by : [address] [address] ANC Prelim 6.51(H) 1.50 - 6.50 K/cumm DEX Comment: Interpretive Data The rapid ANC is a preliminary automated count and may vary from the final ANC (Neut Abs) reported in the WBC differential that follows. Current interpretive data was last revised 2024. Testing performed by: [address] [address] Blood 12/09/2024 4:28 PM CDT 12/09/2024 4:29 PM CDT us Nancy Arvizu MD LAB BLOOD ORDERABLES Geeta walsh Result [facility] Department [place] [address] * (ABNORMAL) Differential, auto (11/24/2024 4:33 PM CDT) Pathologist [facility] Neutrophil abs 4.65 1.50 - 6.50 K/cumm Comment:Testing performed by : [address] [address] Imm gran abs 0.04 0.00 - 0.10 K/cumm DEX Comment:Testing performed by : [address] [address] Lymphocyte abs 3.14 0.80 - 3.30 K/cumm DEX Comment:Testing performed by : [address] [address] Monocyte abs 0.83(H) 0.20 - 0.80 K/cumm DEX Comment:Testing performed by : [address] [address] Eosinophil abs 0.31 0.00 - 0.50 K/cumm DEX Comment:Testing performed by : [address] [address] Basophil abs 0.09 0.00 - 0.10 K/cumm DEX Comment:Testing performed by : [address] [address] Neutrophil pct 51.3 % [facility] Comment: Interpretive Data Percent cell count reference ranges are not reported, since discordance with absolute values may lead to misinterpretation of CBC data. Current Interpretive Data was last revised on 2017. Testing performed by: [address] [address] Imm gran pct 0.4 % [facility] Comment: Interpretive Data Percent cell count reference ranges are not reported, since discordance with absolute values may lead to misinterpretation of CBC data. Current Interpretive Data was last revised on 2017. Testing performed by: [address] [address] Lymphocyte pct 34.7 % [facility] Comment: Interpretive Data Percent cell count reference ranges are not reported, since discordance with absolute values may lead to misinterpretation of CBC data. Current Interpretive Data was last revised on 2017. Testing performed by: [address] [address] Monocyte pct 9.2 % [facility] Comment: Interpretive Data Percent cell count reference ranges are not reported, since discordance with absolute values may lead to misinterpretation of CBC data. Current Interpretive Data was last revised on 2017. Testing performed by: [address] [address] Eosinophil pct 3.4 % [facility] Comment: Interpretive Data Percent cell count reference ranges are not reported, since discordance with absolute values may lead to misinterpretation of CBC data. Current Interpretive Data was last revised on 2017. Testing performed by: [address] [address] Basophil pct 1.0 % [facility] Comment: Interpretive Data Percent cell count reference ranges are not reported, since discordance with absolute values may lead to misinterpretation of CBC data. Current Interpretive Data was last revised on 2017. Testing performed by: [address] [address] Blood 11/24/2024 4:33 PM CDT 11/24/2024 4:36 PM CDT Nancy Arvizu MD LAB BLOOD ORDERABLES Geeta nico Result [facility] [address] Department [place] [address] * (ABNORMAL) CBC with auto differential (11/24/2024 4:33 PM CDT) WBC 9.06 3.80 - 9.90 K/cumm Comment:Testing performed by : [address] [address] Hgb 14.2 11.9 - 15.5 g/dL DEX Comment:Testing performed by : [address], [address] Hct 43.3 35.6 - 45.5 % DEX Comment:Testing performed by : [address] [address] Plt 424(H) 150 - 400 K/cumm DEX Comment:Testing performed by : [address] [address] MPV 9.9 9.1 - 12.3 fL DEX Comment:Testing performed by : [address], [address] RBC 5.37(H) 3.90 - 5.20 M/cumm DEX Comment:Testing performed by : [address] [address] MCV 80.6(L) 81.3 - 96.4 fL DEX Comment:Testing performed by : [address] [address] MCH 26.4(L) 27.1 - 33.3 pg DEX Comment:Testing performed by : [address], [address] MCHC 32.8 32.3 - 35.7 g/dL DEX Comment:Testing performed by : [address], [address] RDW CV 13.2 11.1 - 14.9 % DEX Comment:Testing performed by : [address], [address] RDW SD 38.5 35.7 - 48.1 fL DEX Comment:Testing performed by : [address] [address] NRBC abs 0.00 0.00 - 0.01 K/cumm DEX Comment:Testing performed by : [address] [address] ANC Prelim 4.65 1.50 - 6.50 K/cumm DEX Comment: Interpretive Data The rapid ANC is a preliminary automated count and may vary from the final ANC (Neut Abs) reported in the WBC differential that follows. Current interpretive data was last revised 2024. Testing performed by: [address] [address] Blood 11/24/2024 4:33 PM CDT 11/24/2024 4:36 PM CDT Nancy Arvizu MD LAB BLOOD ORDERABLES Geeta l Result [facility] [address] Department of Laboratories [place], [place] [id number] * (ABNORMAL) Differential, auto (11/10/2024 4:29 PM CDT) [facility] Neutrophil abs 4.05 1.50 - 6.50 K/cumm Comment:Testing performed by : [address] [address] Imm gran abs 0.04 0.00 - 0.10 K/cumm DEX Comment:Testing performed by : [address] [address] Lymphocyte abs 3.32(H) 0.80 - 3.30 K/cumm DEX Comment:Testing performed by : [address] [address] Monocyte abs 0.82(H) 0.20 - 0.80 K/cumm DEX Comment:Testing performed by : [address] [address] Eosinophil abs 0.24 0.00 - 0.50 K/cumm [facility] Comment:Testing performed by : [address] [address] Basophil abs 0.07 0.00 - 0.10 K/cumm [facility] Comment:Testing performed by : [address] [address] Neutrophil pct 47.4 % [facility] Comment: Interpretive Data Percent cell count reference ranges are not reported, since discordance with absolute values may lead to misinterpretation of CBC data. Current Interpretive Data was last revised on 2017. Testing performed by: [address] [address] Imm gran pct 0.5 % [facility] Comment: Interpretive Data Percent cell count reference ranges are not reported, since discordance with absolute values may lead to misinterpretation of CBC data. Current Interpretive Data was last revised on 2017. Testing performed by: [address] [address] Lymphocyte pct 38.9 % [facility] Comment: Interpretive Data Percent cell count reference ranges are not reported, since discordance with absolute values may lead to misinterpretation of CBC data. Current Interpretive Data was last revised on 2017. Testing performed by: [address] [address] Monocyte pct 9.6 % [facility] Comment: Interpretive Data Percent cell count reference ranges are not reported, since discordance with absolute values may lead to misinterpretation of CBC data. Current Interpretive Data was last revised on 2017. Testing performed by: [address] [address] Eosinophil pct 2.8 % [facility] Comment: Interpretive Data Percent cell count reference ranges are not reported, since discordance with absolute values may lead to misinterpretation of CBC data. Current Interpretive Data was last revised on 2017. Testing performed by: [address] [address] Basophil pct 0.8 % [facility] Comment: Interpretive Data Percent cell count reference ranges are not reported, since discordance with absolute values may lead to misinterpretation of CBC data. Current Interpretive Data was last revised on 2017. Testing performed by: [address] [address] Blood 11/10/2024 4:29 PM CDT 11/10/2024 4:29 PM CDT us Nancy Arvizu MD LAB BLOOD ORDERABLES Geeta l [facility] [address] [facility] Department [place] [address] * (ABNORMAL) CBC with auto differential (11/10/2024 4:29 PM CDT) WBC 8.54 3.80 - 9.90 K/cumm Comment:Testing performed by : [address] [address] Hgb 14.1 11.9 - 15.5 g/dL DEX Comment:Testing performed by : [address] [address] Hct 42.6 35.6 - 45.5 % DEX Comment:Testing performed by : [address] [address] Plt 358 150 - 400 K/cumm DEX Comment:Testing performed by : [address] [address] MPV 10.2 9.1 - 12.3 fL DEX Comment:Testing performed by : [address] [address] RBC 5.26(H) 3.90 - 5.20 M/cumm DEX Comment:Testing performed by : [address] [address] MCV 81.0(L) 81.3 - 96.4 fL DEX Comment:Testing performed by : [address] [address] MCH 26.8(L) 27.1 - 33.3 pg DEX Comment:Testing performed by : [address], [address] MCHC 33.1 32.3 - 35.7 g/dL DEX Comment:Testing performed by : [address] [address] RDW CV 13.2 11.1 - 14.9 % DEX AZAR Comment:Testing performed by : [address] [address] RDW SD 38.6 35.7 - 48.1 fL DEX Comment:Testing performed by : [address] [address] NRBC abs 0.00 0.00 - 0.01 K/cumm DEX Comment:Testing performed by : [address] [address] ANC Prelim 4.05 1.50 - 6.50 K/cumm DEX Comment: Interpretive Data The rapid ANC is a preliminary automated count and may vary from the final ANC (Neut Abs) reported in the WBC differential that follows. Current interpretive data was last revised 2024. Testing performed by: [address] [address] Blood 11/10/2024 4:29 PM CDT 11/10/2024 4:29 PM CDT us Nancy Arvizu MD LAB BLOOD ORDERABLES Geeta l Result [facility] [address] [facility] Department [place] [address] * Colonoscopy (01/27/2024 11:11 AM CDT) Anatomical Region Laterality Modality Other Narrative Procedure Note Randall Masters MD - 01/27/2024 11:11 AM CDT [facility] GI ENDOSCOPY Patient Name: Sangeeta Lai Procedure Date: 01/27/2024 11:11 AM Date of : 1970 Admit Type: Outpatient Age: 53 Gender: Female Attending MD: Randall Masters M.D. Room: [facility] ENDOSCOPY ROOM 05 Note Status: Finalized Procedure: Colonoscopy Indications: Screening for colorectal malignant neoplasm Referring MD: Vaughn Saldana PA-C Providers: Randall Masetrs M.D. Medicines: Monitored Anesthesia Care Complications: No immediate complications. Estimated Blood Loss: Estimated blood loss was minimal. Procedure: The benefits, risks and alternatives of theprocedure and sedation were discussed and informed consentwas obtained. All questions were answered. Please referto the signed informed consent document in the medical record. The scope was passed under direct vision.The [id number] colonoscope was introduced through theanus and advanced [...] On: 01/27/2024 11:11 AM Recognized by the [employer] for promoting quality in endoscopy Randall Masters MD ENDOSCOPY PROCEDURES Fin al Result from Last 3 Months or Most Recently Relevant to Health Maintenance Insurance [employer] Care Teams Clinical Instructor Relationship Specialty Start Date End Date Leatha Marcos NP [address] [place] [id number] PCP - General Family Medicine 07/27/24
--- OUTSIDE RECORDS SUMMARY | 2025-02-01 13:39 | XMS_ITS | Encounter Summary ---
Author Organization [facility] Address [address] [place] [address] Care Team Providers Care Propellant Charge Zone Assembler Name Role Phone Unavailable Primary Care Provider Unavailabl e Encounter Details Date Type Department Care Team (Late st Contact Info) Description 05/11/2021 Lab Requisition [facility] DermPath Lab [address] [facility] [place] [id number] Dread Almanza MD [address] [facility] [address] [address] Social History Tobacco Use Types Packs/Day Years Used Date Smoking Tobacco: Never Assessed Comments Unknown Sex and Gender Information Value Date Recorded Sex Assigned at Not on file Legal Sex Female 3:19 PM CDT Gender Identity Not on file Sexual Orientation Not on file documented as of this encounter Plan of Treatment Not on file documented as of this encounter Procedures Procedure Name Priority Date/Time Associated Diagnosis Comments DERMATOPATHOLOGY Routine 05/10/2021 12:0 0 AM CDT documented in this encounter Results * DERMATOPATHOLOGY (05/10/2021 12:00 AM CDT) Case Report Dermatopathology Report Case: [id number] Authorizing Provider: Dread Almanza MD Collected: 05/10/2021 12:00 AM Ordering Location: [facility] DermPath Lab Received: 05/11/2021 08:00 AM Pathologist: Aliyah Alcantara MD Specimens: A) - Skin, right upper chest B) - Skin, left upper chest 7:04 PM CDT DERMATOPATHOLOGY LABORATORY Final Diagnosis Specimen A. 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 Path # [id number]. B: Angioma vs BCCA. Path # [id number]. 7:04 PM CDT DERMATOPATHOLOGY LABORATORY Gross Description Specimen A: Received is one formalin filled container labeled with the patient's name and designated right upper chest. The specimen consists of a shave biopsy measuring [id number]. Jar 0. Specimen B: Received is one formalin filled container labeled with the patient's name and designated left upper chest. The specimen consists of a shave biopsy measuring [id number]. Jar 0. 7:04 PM CDT DERMATOPATHOLOGY LABORATORY Microscopic Description Specimen A. SKIN, right upper chest: Within the dermis, there is a well-circumscribed aggregate of spindle shaped cells with hints of organization into fascicles and clefts between these fascicles. Specimen B. SKIN, left upper chest: In the dermis, there are dilated vascular spaces surrounded by widely spaced endothelial cells. 7:04 PM CDT DERMATOPATHOLOGY LABORATORY Disclaimer An external and internal positive and negative controls are appropriate for the histochemical, immunohistochemical and immunofluorescence stain(s) in this case (if any), except where stated explicitly. The performance characteristics of the stain(s) cited in this report were developed and its performance characteristic determined by the Dermatopathology Laboratory at [facility], directed by Dr. Haydee Kennedy. These tests need not be, and therefore are not, approved by the [place] Food and Drug Administration. The tests are used for clinical purposes. Billing Codes Specimen Charges Stain Charges 48372 [id number] 1 1 7:04 PM CDT DERMATOPATHOLOGY LABORATORY Embedded Images 7:04 PM CDT DERMATOPATHOLOGY LABORATORY Pathology/Cytology TISSUE SPECIMEN FROM SKIN / Unknown 05/10/2021 05/11/2021 8:00 AM CDT Miscellaneous samples (specimen) TISSUE SPECIMEN FROM SKIN / Unknown 05/10/2021 05/11/2021 8:00 AM CDT us Dread Almanza MD LAB - PATHOLOGY/CYTOLOGY ORDER REY Final Result DERMATOPATHOLOGY LABORATORY [facility] - Department of Dermatology [facility] Specialized Medicine [facility] [facility], 3rd Floor [address] [phone] documented in this encounter Visit Diagnoses Not on filedocumented in this encounter
--- NOTE | 2025-02-02 09:55 | WPDPFTINT ---
PFT Procedure Performed PFT Procedure Performed Spirometry with Pre/Post Bronchodilator Plethysmography (Lung Vol) Diffusing Cap (DLCO) Flow Vol Loop PFT Interpretation This is a pulmonary function test with pre and post-bronchodilator spirometry, plethysmography and diffusing capacity. The test was performed and results interpreted in accordance with the 2019 and 2005 ATS/ERS Task Force guidelines respectively using the Global Lung Function Initiative-2012 reference equations. Patient demonstrated good effort and cooperation. Reproducibility criteria were met. The quality of the pre bronchodilator spirometry maneuver was Grade A and post bronchodilator spirometry maneuver was Grade A. Findings: Spirometry: The contour the inspiratory and expiratory flow tracing are normal. The pre bronchodilator FVC is 2.78 L, 86% predicted. The pre bronchodilator FEV1 is 1.94 L, 75% predicted. The pre bronchodilator FEV1: FVC ratio 70%. The post bronchodilator FVC is 2.76 L, representing 1% decrease. The post bronchodilator FEV1 is 1.90 L, representing a 2% decrease. The post bronchodilator FEV1: FVC ratio 69%. Plethysmography: The total lung capacity is 4.49 L, 92% predicted. The functional residual capacity is 1.63 L, 59% predicted. The residual volume is 1.59 L, 88% predicted. Diffusing capacity: The diffusing capacity unadjusted for hemoglobin and carboxyhemoglobin is 17.9, 82% predicted. The diffusing capacity adjusted for alveolar volume is 4.11, 90% predicted. Impression: The FEV1 is less than 80% predicted and the FEV1: FVC ratio is greater than then lower limit of normal consistent with Preserved Ratio Impaired Spirometry (PRISm) with a normal FVC. The total lung capacity and residual volume are normal with a decreased functional residual capacity. This is an abnormal but nonspecific lung volume pattern. The diffusing capacity is normal. There are no prior studies for comparison
== END 2025-02-01 13:36 | disposition home or self-care (01) ==
PROVIDERS: PCP Nurse Practitioner; Visit Provider Physician Assistant
DX: R94.2 Abnormal results of pulmonary function studies (principal); J45.909 Unspecified asthma, uncomplicated; Z87.891 Personal history of nicotine dependence
CPT/HCPCS: 94060; 94726; 94729